=== PATIENT | male | born 1935 | race Caucasian/White ===

== ENCOUNTER 2018-06-07 17:54 | Observation (INO) ==
[2018-06-07] MEDS ORDERED: Dextrose Gel 15 GM/37.5 ML TUBE PO PRN ×2 (21:04)
[2018-06-07 21:41] LABS: Basophils % 0.5 %; Eosinophils # 0.2 K/mcL (0.0-0.6); Eosinophils % 3.9 %; Immature Granulocytes % 0.5 % (0-4); Lymphocytes # 0.6 K/mcL (0.6-4.6); Lymphocytes % 9.2 %; Mean Corpuscular HGB Conc 30.8 g/dL (31.6-35.5); Mean Corpuscular Hemoglobin 23.7 pg (28.0-33.3); Mean Corpuscular Volume 77.2 fL (83.0-100.0); Mean Platelet Volume 9.4 fL (9.4-12.4); Monocytes # 0.7 K/mcL (0.0-1.3); Monocytes % 11.3 %; Neutrophils # 4.6 K/mcL (1.6-8.9); Platelet Count 201 K/mcL (140-400); Red Blood Count 3.37 M/mcL (4.19-5.50); Red Cell Distribution Width 16.8 % (11.5-14.5); Segmented Neutrophils % 74.6 %
[2018-06-07 21:48] LABS: INR 1.2
[2018-06-07 21:51] LABS: Activated Partial Thrombo Time 31.7 Seconds (26.0-36.0)
[2018-06-07 21:58] LABS: Albumin 2.9 g/dL (3.5-5.7); Bilirubin,Direct 0.1 mg/dL (0.0-0.2); Bilirubin,Indirect 0.3 mg/dL (0.0-1.2); Bilirubin,Total 0.4 mg/dL (0.3-1.0); Calcium 8.3 mg/dL (8.6-10.3); Globulin 2.9 g/dL (2.4-3.5); Potassium 5.5 mEq/L (3.5-5.1); Total Protein 5.8 g/dL (6.4-8.9)
[2018-06-07] MEDS: Insulin LISPRO 300 UNITS/3 ML VIAL SQ SCH (23:40)
[2018-06-07] MEDS: Melatonin 3 MG TABLET PO SCH (23:43)
--- NOTE | 2018-06-08 03:29 | Internal Med History&Physical ---
Date of Encounter: 06/07/18 Time of Encounter: 20:00 Internal Medicine - H&P: HPI Chief complaint: swelling Admitted From: Home Plans for Post Hospital Care: Home History of present illness: Raheem Palomares is an 83 year old man with chronic kidney disease, coronary artery disease, anemia, GI bleed and liver cirrhosis with ascites who was discharged from here about 3 weeks ago where he required paracentesis but also suffered MATT from diuretics. He was meant to follow with nephrology and GI as OP. He presents again on transfer from a hospital in [place] where he went to complaining of increased swelling in his legs and abdomen since discontinuation of the diuretics. There he had a paracentesis performed but was also noted to have worsening kidney disease. On arrival here he has no complaints and feels better. Vitals: Reviewed General: Well-developed man lying in bed in NAD Skin: Warm and supple. HEENT: Moist mucous membranes. (+) conjunctivae pallor. . Neck: No lymphadenopathy. No JVD. No carotid bruits. No palpable thyroid. Chest: Reduced thoracic expansion. Diminished breath sounds. Clear to auscultation. Heart: Normal S1 & S2; rhythmic. No rubs or murmurs. Abdomen: distended, soft and non-tender to palpation. No peritoneal reaction. Extremities: 3+ pitting edema of both legs. Neurological: Awake, alert and oriented to person, place and time. No focal deficits. Psych: Affect appropriate. Past Med Surg Social Fam HX - Past Medical History Medical history: CHF, diabetes, hypertension, renal disease Additional medical history: Skin cancer Psychiatric history: depression - Past Surgical History Surgical History: coronary bypass (CABG) Additional surgical history: Skin cancer removal - Social History Smoking Status: Former smoker Smokeless Tobacco Status: No Alcohol use: none Drug use: none - Family History Mother Living Status: Hx Family Cancer: Yes (Uterine) Father Hx Family Cancer: Yes (Retinal) Hx Family Endocrine Disorder: Yes (DM) Brother Hx Family Cardiac Disorders: Yes (DVT) Internal Medicine - H&P: Meds Aspirin [Ecotrin] 325 mg PO DAILY 05/09/18 [History] Atorvastatin [Lipitor] 10 mg PO HS 05/09/18 [History] Calcium Carbonate [Calcium] 600 mg PO DAILY 05/09/18 [History] Famotidine [Acid Controller] 20 mg PO BID 05/09/18 [History] Insulin NPH Hum/Reg Insulin Hm [Novolin 70-30 100 Unit/ml Vial] 60 unit SQ BID 05/09/18 [History] Melatonin [Melatin] 3 mg PO HS 05/09/18 [History] Metoprolol [Lopressor] 12.5 mg PO BID 05/09/18 [History] Sertraline [Zoloft] 50 mg PO HS 05/09/18 [History] Tamsulosin HCl [Flomax] 0.4 mg PO HS 05/09/18 [History] hydrALAZINE [HydrALAZINE] 25 mg PO DAILY 05/09/18 [History] Cyanocobalamin (Vitamin B-12) [Vitamin B-12] 1,000 mcg PO DAILY 05/10/18 [History] Dorzolamide [Trusopt] 1 drop BOTH EYES BID 05/10/18 [History] Ferrous Gluconate [Iron] 240 mg PO DAILY 05/10/18 [History] Insulin ASPART [NovoLOG] 0 unit SQ ACHS 05/10/18 [History] Omeprazole [PriLOSEC] 40 mg PO BIDAC 30 Days #60 capsule. 05/17/18 [Rx] Lisinopril 30 mg PO BID 06/07/18 [History] Allergy/AdvReac Type Severity Reaction Status Date / Time Penicillins Allergy Swelling Verified 08/26/17 12:58 of Lip/Tongue/Throat All Systems PM: A 10-system review of systems was performed and is negative for pertinent findings except as documented above in the HPI. - Constitutional Vitals: Temp Pulse Resp BP Pulse Ox 97.9 F 79 17 153/65 98 06/07/18 20:39 06/07/18 20:39 06/07/18 20:39 06/07/18 20:39 06/07/18 20:39 Exam: . Internal Med - H&P Results - Labs CBC & Chem 7: 06/07/18 21:19 06/07/18 21:19 Labs: Short CBC 06/07/18 Range/Units 21:19 WBC 6.2 (4.3-11.1) K/mcL Hgb 8.0 L (12.9-16.9) g/dL Hct 26.0 L (37.5-50.1) % Plt Count 201 (140-400) K/mcL Neutrophils # 4.6 (1.6-8.9) K/mcL BMP 06/07/18 21:19 Sodium 132 L Potassium 5.5 H Chloride 107 Carbon Dioxide 15 L BUN 88 H Creatinine 4.53 H Glucose 169 H Calcium 8.3 L Liver Function 06/07/18 Range/Units 21:19 Total Bilirubin 0.4 (0.3-1.0) mg/dL Direct Bilirubin 0.1 (0.0-0.2) mg/dL AST 6 L (13-39) Units/L ALT 10 (7-52) Units/L Alkaline Phosphatase 98 (34-104) Units/L Albumin 2.9 L (3.5-5.7) g/dL - Assessment and Plan (1) Acute kidney injury superimposed on CKD Current Visit: Yes Status: Acute Assessment and plan: Concern that it may be secondary to intra-vascular depletion. Will consult nephrology for assessment as I plan to not give fluids for now given his third spacing. (2) Ascites Current Visit: No Status: Acute Assessment and plan: Unclear etiology of his liver disease. He denies alcohol use to me. Hepatitis serologies negative. He received a paracentesis prior to transfer here. Diuretics on hold given his kidney injury. Qualifiers: Ascites type: other type Qualified Code(s): R18.8 - Other ascites (3) Anemia Current Visit: No Status: Chronic Assessment and plan: In the setting of chronic blood loss from hepatic disease. FeSO4 supplementation in place. Qualifiers: Anemia type: iron deficiency Iron deficiency anemia type: chronic blood loss Qualified Code(s): D50.0 - Iron deficiency anemia secondary to blood loss (chronic) (4) Cirrhosis Current Visit: Yes Status: Chronic Assessment and plan: Will place on standing lactulose. Will need EGD to evaluation for varices. G/I f/u needed. Qualifiers: Hepatic cirrhosis type: unspecified hepatic cirrhosis Ascites presence: with ascites Qualified Code(s): K74.60 - Unspecified cirrhosis of liver; R18.8 - Other ascites (5) CAD (coronary artery disease) Current Visit: Yes Status: Chronic Assessment and plan: On statin therapy. Aspirin on hold due to bruising and bleeding. Qualifiers: Coronary Disease-Associated Artery/Lesion type: [place] artery [place] vs. transplanted heart: [place] heart Associated angina: without angina Qualified Code(s): I25.10 - Atherosclerotic heart disease of [place] coronary artery without angina pectoris (6) Diabetes Current Visit: Yes Status: Chronic Assessment and plan: Will place on insulin sliding scale in the interim. Qualifiers: Diabetes mellitus type: type 2 Diabetes mellitus longterm insulin use: with termite control servicer use Diabetes mellitus complication status: with unspecified complications Qualified Code(s): E11.8 - Type 2 diabetes mellitus with unspecified complications; Z79.4 - assisted (current) use of insulin (7) Hyperkalemia Current Visit: Yes Status: Resolved Assessment and plan: Has a tendency to hyperkalemia and this will require frequent monitoring. (8) DVT prophylaxis Current Visit: Yes Status: Acute Assessment and plan: IPC ordered. - Time Spent With Patient Total time spent is greater than 50% in coordination of care (as documented) at patient's floor/unit and/or counseling patient: Greater than 35 minutes
[2018-06-08] MEDS ORDERED: D5% in Water 1,000 ML IVC PRN (07:12)
[2018-06-08] MEDS ORDERED: *HR* Dextrose 50 % in Water (Syg) 50 ML SYRINGE IVP PRN (07:12)
[2018-06-08] MEDS: Insulin LISPRO 300 UNITS/3 ML VIAL SQ SCH ×4 (07:16→21:26)
[2018-06-08] MEDS: Cyanocobalamin (B-12) 1,000 MCG TABLET PO SCH (07:27)
[2018-06-08] MEDS: Lactulose Oral Soln 20 GM/30 ML UDC PO SCH ×2 (07:28→21:35)
[2018-06-08] MEDS ORDERED: Famotidine 20 MG TABLET PO SCH (09:00)
[2018-06-08] MEDS ORDERED: Ferrous Sulfate Oral Soln 300 MG/5 ML UDC PO SCH (09:00)
[2018-06-08] MEDS ORDERED: hydrALAZINE 25 MG TABLET PO SCH (09:00)
[2018-06-08 09:35] LABS: Hematocrit 25.3 % (37.5-50.1); Hemoglobin 7.5 g/dL (12.9-16.9); Mean Corpuscular HGB Conc 29.6 g/dL (31.6-35.5); Mean Corpuscular Hemoglobin 22.9 pg (28.0-33.3); Mean Corpuscular Volume 77.4 fL (83.0-100.0); Mean Platelet Volume 8.7 fL (9.4-12.4); Platelet Count 183 K/mcL (140-400); Red Blood Count 3.27 M/mcL (4.19-5.50); Red Cell Distribution Width 16.6 % (11.5-14.5)
[2018-06-08 09:55] LABS: Calcium 8.2 mg/dL (8.6-10.3); Potassium 5.4 mEq/L (3.5-5.1)
[2018-06-08] MEDS: Dorzolamide OPTH 10 ML BOTTLE BOTH EYES SCH ×2 (10:15→22:23)
[2018-06-08 10:26] LABS: Hepatitis B Surface Antibody 3.37 mIU/mL
[2018-06-08 10:36] LABS: Hepatitis B Surface Antigen Nonreactive (Nonreactive)
[2018-06-08] MEDS: Ferrous Sulfate Oral Soln 300 MG/5 ML UDC PO SCH (11:16)
--- NOTE | 2018-06-08 12:12 | Nephrology Consult Note ---
Date of Encounter: 06/08/18 Time of Encounter: 10:00 Assessment and Plan (1) Acute kidney injury superimposed on CKD Status: Acute MATT on CKD and he was transferred from a [place] to [place]. Agree with stopping the usual dose of lisinopril 30mg po bid, which likely has contributed to his hyperkalemia and worsened renal function. he affirmed having diarrhea recently and was also taking OTC Aleve of about "1-2" per day. Rec avoiding nephrotoxins as able. Rec renal diet that is very low his K+ and Phos. Recommend trial of gentle IVF and if he does not improve, then he should start HD. Noted to have peripheral edema and ascites on exam, which confirms added complexity in decision making for this pt. He is not likely to tolerate very much IVF Thank you for consulting the [facility] group on this complex, high risk pt who required a very high degree of MDM and E/M. My colleague Dr. Biswas will be on-call/on-service starting tomorrow. Thank you. (2) Peripheral edema Status: Acute See above (3) NSAID long-term use Status: Acute See above (4) Hypertension Status: Chronic He likely should not be resumed on the very usual dosing of lisinopril 30mg po bid after this admission but certainly to hold for now. Qualifiers: Hypertension type: unspecified Qualified Code(s): I10 - Essential (primary) hypertension (5) Cirrhosis Status: Chronic As per primary. HRS is always a diagnosis of exclusion and not at the top of the current differential diagnoses. Qualifiers: Hepatic cirrhosis type: unspecified hepatic cirrhosis Ascites presence: with ascites Qualified Code(s): K74.60 - Unspecified cirrhosis of liver; R18.8 - Other ascites (6) Hyperkalemia Status: Resolved See above, re: holding the VICENTE and NSAIDs. (7) Ascites Status: Acute See above. Qualifiers: Ascites type: other type Qualified Code(s): R18.8 - Other ascites History of Present Illness - Reason for Consult Consult date: 06/08/18 Acute Kidney Injury, Chronic Kidney Disease, hyperkalemia Requesting physician: Elieser Rivera - Chief Complaint MATT on CKD with findings of hyperkalemia - History of Present Illness The patient is a very pleasant 83-year-old male with a past medical history of progressive long-standing chronic kidney disease, as well as a history of cirrhosis with recurrent ascites, hypertension, and et al who transferred from an outside hospital from [facility]. He said that years ago he was seen by a now retired rayon tester, which is when he thinks he was first placed on Lisinopril 30mg twice per day, but the patient recently established with my colleague Dr. Preet Brown. The patient affirmed he has been taking frequent NSAIDs, and reported having a paracentesis recently performed. He was noted to have worsening labs and so the outside hospital recommended the patient be seen at [place]. The patient affirmed feeling relatively poor, with diminished appetite occasional nausea, occasional loose stools. He denied having recent IV contrast exposures from CT scans or a heart catheter. He did not affirm active chest pain, or worsening shortness of breath, or headaches, or visual changes, but did affirm chronic lower extremity swelling, history of cirrhosis with abdominal distention/ascites. Past Med Surg Social Fam HX - Past Medical History Medical history: CHF, diabetes, hypertension, renal disease Additional medical history: Skin cancer Psychiatric history: depression - Past Surgical History Surgical History: coronary bypass (CABG) Additional surgical history: Skin cancer removal - Social History Smoking Status: Former smoker Smokeless Tobacco Status: No Alcohol use: none Drug use: none - Family History Mother Living Status: Hx Family Cancer: Yes (Uterine) Father Hx Family Cancer: Yes (Retinal) Hx Family Endocrine Disorder: Yes (DM) Brother Hx Family Cardiac Disorders: Yes (DVT) Medications and Allergies Aspirin [Ecotrin] 325 mg PO DAILY 05/09/18 [History] Atorvastatin [Lipitor] 10 mg PO HS 05/09/18 [History] Calcium Carbonate [Calcium] 600 mg PO DAILY 05/09/18 [History] Famotidine [Acid Controller] 20 mg PO BID 05/09/18 [History] Melatonin [Melatin] 3 mg PO HS 05/09/18 [History] Metoprolol [Lopressor] 12.5 mg PO BID 05/09/18 [History] Sertraline [Zoloft] 50 mg PO HS 05/09/18 [History] Tamsulosin HCl [Flomax] 0.4 mg PO HS 05/09/18 [History] Dorzolamide [Trusopt] 1 drop BOTH EYES BID 05/10/18 [History] Ferrous Gluconate [Iron] 240 mg PO DAILY 05/10/18 [History] Insulin ASPART [NovoLOG] 0 unit SQ ACHS MDD PER SLIDING SCALE 05/10/18 [History] Cyanocobalamin (Vitamin B-12) [B-12] 1,000 mcg PO DAILY 06/08/18 [History] Diphenoxylate/Atropine [Lomotil 2.5 mg/0.025 mg] 1 tab PO Q6H PRN 06/08/18 [History] Dorzolamide HCl/Pf [Dorzolamide 2% Eye Drop] 1 drop BOTH EYES BID 06/08/18 [History] Insulin Aspart Prot/Insuln Asp [Novolog Mix 70-30 Vial] 40 unit SQ BID #0 06/10/18 [Rx] Lactulose 10 gm PO BID #60 udc 06/10/18 [Rx] Allergy/AdvReac Type Severity Reaction Status Date / Time Penicillins Allergy Swelling Verified 06/08/18 14:10 of Lip/Tongue/Throat Review of Systems All Systems: reviewed and no additional remarkable complaints except as stated Exam - Vital Signs Vital signs: Initial Vital Signs Temp Pulse Resp BP Pulse Ox 97.9 F 79 17 153/65 98 06/07/18 20:39 06/07/18 20:39 06/07/18 20:39 06/07/18 20:39 06/07/18 20:39 Vital Signs - Last 8 Hours Temp Pulse Resp BP Pulse Ox 06/08/18 11:03 97.6 F 55 18 101/49 97 06/08/18 07:08 98.3 F 60 16 116/57 98 Intake and Output 06/07/18 06/08/18 06/08/18 23:59 07:59 15:59 Intake Total 480 / 480 Balance 480 / 480 Intake: Oral 480 / 480 Other: Meal Breakfast Percent of Meal Consumed 100% Weight 117.9 kg Blood Glucose* 166 134 203 - General Appearance General appearance: well-developed, well-nourished, appears started age, fatigue, frail EENT: ATNC, PERRL, mucous membranes moist Neck: supple Respiratory: clear Cardiology: edema (2-3+ pitting edema b/l (the pt described this as chronic)), regular rate, regular rhythm, normal S1, normal S2 Gastrointestinal: normoactive bowel sounds, no tenderness, no guarding Integumentary: warm and dry Neurologic: no focal deficit, no asterixis, alert and oriented x3 Musculoskeletal: no deformities, no erythema, no cyanosis Psychiatric: mood/affect appropriate, cooperative Results - Lab Results 06/10/18 02:05 06/10/18 02:05 Most recent lab results Calcium 8.2 mg/dL (8.6-10.3) L 06/08/18 09:22 I reviewed the labs, vitals, med list and prior progress notes and imaging. Consult Discharge Plan - Plan Additional Instructions: Dr. Biswas's Office to call the patient on Tuesday or Tuesday - appts needed for f-up visit and hemodialysis session... You must have your labs drawn on Tuesday and sent to Dr Biswas's office Referrals: Prema Ledesma, JUDD [Advanced Practice Nurse] - (Call office Tuesday to schedule follow up for next week) Vivi Duque MD [Partnered Physician] - (Please ensure you follow up with Dr. Biswas's office next week. If for some reason you do not hear from them by Tuesday evening please call first thing on Tuesday Morning and tell them you need a hospital follow up this week per Dr. Kelly orders. And if they have any questions they can reach out to Dr. Biswas or to the nurses station. Thank you!) Prescriptions: Lactulose 10 gm PO BID #60 [facility] [place]
[2018-06-08] MEDS ORDERED: 0.9 % Sodium Chloride 1,000 ML IVC SCH (12:30)
[2018-06-08 14:14] LABS: Uric Acid 9.9 mg/dL (2.3-7.6)
[2018-06-08] MEDS: Famotidine 20 MG TABLET PO SCH (21:34)
[2018-06-08] MEDS: Melatonin 3 MG TABLET PO SCH (21:35)
--- NOTE | 2018-06-08 22:42 | Internal Med Progress Note ---
Hospitalist Progress Note - Encounter Date of Encounter: 06/08/18 Time of Encounter: 19:00 - Subjective Interval History: SUBJECTIVE: The patient feels somewhat bettergot paracentesis yesterday. He started getting paracentesis about 2 weeks ago; got couple of those. He is on room air oxygen. Denies difficulty breathing, coughing and wheezing. Denies chest pain. Denies abdominal pain, nausea and vomiting. His abdominal pain has significantly increased girth. He has mild/moderate swelling of feet/lower legs. OBJECTIVE: Skin: Free of rash and discoloration. ENMT: Oral/pharyngeal mucosa is normal in appearance. Eyes: Sclera is white. There is no discharge from eyes. Respiratory: Normal breath sounds; no crackles or wheezes. CV: Heart is regular; no gallop or murmur. There is mild/moderate swelling of feet/lower legs. GI: His abdomen is showing increased girth. It is not tender to palpation. I cannot feel any abnormal mass or visceromegaly. Neuro: There is no focal deficits. ADDITIONAL DATA: Hemoglobin is 8.0 (chronic) with a normal WBC/platelet count. Sodium is 132 with potassium of 5.5. Her bicarb is 15. Creatinine is 4.53; was three-point at 2 6 on 05/16/18. He has underlying CKD stage IV. Fasting glucose is 169. Hepatic panel is normal. Pro time INR is 1.2. ASSESSMENT AND PLAN: Acute on chronic renal failure. CKD stage IV. Type 2 diabetes mellitus and hypertension. He gets when necessary Humalog. I will substitute his Lopressor with her low dose of propranolol. His lisinopril has been stopped. He is receiving normal saline at 75 cc/h. He will have BMP daily. Liver cirrhosis with edema of her feet/lower legs. With ascites. He had paracentesis yesterday. The patient is on lactulose. He is on Prilosec and Pepcid. He had upper endoscopy on 05/17/18. It showed normal esophagus/stomach/examined portion of duodenum. Anemia. Likely multifactorial. To observe. The patient has underlying very mild systolic heart failure with possible diastolic heart failure. They are chronic. See echocardiogram. - Exam Vitals: Temp Pulse Resp BP Pulse Ox 97.3 F L 82 17 163/79 99 06/08/18 20:37 06/08/18 20:37 06/08/18 20:37 06/08/18 20:37 06/08/18 20:37 Exam: xx - Assessment and Plan (1) Acute kidney injury superimposed on CKD Current Visit: Yes Status: Acute (2) Cirrhosis Current Visit: Yes Status: Chronic (3) Ascites Current Visit: No Status: Acute (4) Anemia Current Visit: No Status: Chronic (5) Diabetes Current Visit: Yes Status: Chronic (6) Hypertensive renal disease with renal failure Current Visit: Yes Status: Chronic - Time Spent with Patient Total time spent is greater than 50% in coordination of care (as documented) at patient's floor/unit and/or counseling patient: 25 - 35 minutes Plan of Care Discussed with: patient Internal Medicine: Result - Labs CBC & Chem 7: 06/08/18 09:22 06/08/18 09:22 Labs: Short CBC 06/08/18 Range/Units 09:22 WBC 6.7 (4.3-11.1) K/mcL Hgb 7.5 L (12.9-16.9) g/dL Hct 25.3 L (37.5-50.1) % Plt Count 183 (140-400) K/mcL BMP 06/08/18 09:22 Sodium 133 L Potassium 5.4 H Chloride 109 H Carbon Dioxide 16 L BUN 88 H Creatinine 4.60 H Glucose 178 H Calcium 8.2 L - ABG Interpretation ABG results: PT/INR, D-dimer PT 14.0 Seconds (9.4-12.1) H 06/07/18 21:19 - Impressions Impressions Retroperitoneum Ultrasound 06/08/18 18:00 IMPRESSION: Unremarkable ultrasound of the kidneys and urinary bladder. Extensive ascites. D/ / Buddy Pascal MD / Buddy Pascal MD Interpreting Provider: Buddy Pascal MD Consult Discharge Plan - Plan Referrals: NONE,PCP [Primary Care Provider] - (2) Cirrhosis Qualifiers: Hepatic cirrhosis type: unspecified hepatic cirrhosis Ascites presence: with ascites Qualified Code(s): K74.60 - Unspecified cirrhosis of liver; R18.8 - Other ascites (3) Ascites Qualifiers: Ascites type: other type Qualified Code(s): R18.8 - Other ascites (4) Anemia Qualifiers: Anemia type: iron deficiency Iron deficiency anemia type: chronic blood loss Qualified Code(s): D50.0 - Iron deficiency anemia secondary to blood loss (chronic) (5) Diabetes Qualifiers: Diabetes mellitus type: type 2 Diabetes mellitus jail insulin use: with jail use Diabetes mellitus complication status: with kidney complications Diabetes mellitus complication detail: with chronic kidney disease Chronic kidney disease stage: stage 4 (severe) Qualified Code(s): E11.22 - Type 2 diabetes mellitus with diabetic chronic kidney disease; N18.4 - Chronic kidney disease, stage 4 (severe); Z79.4 - terminal worker (current) use of insulin
[2018-06-09 02:52] LABS: Hematocrit 24.7 % (37.5-50.1); Hemoglobin 7.6 g/dL (12.9-16.9); Mean Corpuscular HGB Conc 30.8 g/dL (31.6-35.5); Mean Corpuscular Hemoglobin 23.8 pg (28.0-33.3); Mean Corpuscular Volume 77.2 fL (83.0-100.0); Mean Platelet Volume 9.6 fL (9.4-12.4); Platelet Count 189 K/mcL (140-400); Red Cell Distribution Width 16.5 % (11.5-14.5)
[2018-06-09 03:13] LABS: Albumin 2.7 g/dL (3.5-5.7); Magnesium 1.6 mg/dL (1.6-2.6); Phosphorous 5.1 mg/dL (2.7-4.5)
[2018-06-09 03:14] LABS: Calcium 7.9 mg/dL (8.6-10.3); Potassium 5.3 mEq/L (3.5-5.1)
[2018-06-09] MEDS ORDERED: 0.9 % Sodium Chloride 250 ML IVC PRN (05:50)
[2018-06-09] MEDS ORDERED: 0.9 % Sodium Chloride 1,000 ML PRIME SCH (06:00)
[2018-06-09] MEDS: Insulin LISPRO 300 UNITS/3 ML VIAL SQ SCH ×4 (08:33→20:54)
[2018-06-09] MEDS: Lactulose Oral Soln 20 GM/30 ML UDC PO SCH ×2 (08:40→20:47)
[2018-06-09] MEDS: Cyanocobalamin (B-12) 1,000 MCG TABLET PO SCH (08:40)
[2018-06-09] MEDS: Dorzolamide OPTH 10 ML BOTTLE BOTH EYES SCH ×2 (08:42→20:50)
[2018-06-09] MEDS ORDERED: *HR* Heparin 5,000 UNIT/ML VIAL ONE (10:25)
[2018-06-09] MEDS: Ferrous Sulfate Oral Soln 300 MG/5 ML UDC PO SCH (11:47)
[2018-06-09] MEDS ORDERED: Methyl Salicylate/Menthol 28 GM TUBE TP PRN (17:26)
[2018-06-09] MEDS: Melatonin 3 MG TABLET PO SCH (20:48)
[2018-06-09] MEDS: Famotidine 20 MG TABLET PO SCH (20:48)
--- NOTE | 2018-06-09 22:04 | Internal Med Progress Note ---
Hospitalist Progress Note - Encounter Date of Encounter: 06/09/18 Time of Encounter: 19:00 - Subjective Interval History: SUBJECTIVE: The patient got non-tunneled catheter inserted todayfollowed by hemodialysis. He feels weak. Otherwise, he is not voicing any other problems. Denies chest pain and difficulty breathing. He is on room her oxygen. Denies abdominal pain, nausea and vomiting. She does not make any significant amounts of urine. OBJECTIVE: Skin: Free of rash and discoloration. ENMT: Oral/pharyngeal mucosa is normal in appearance. Eyes: Sclera is white. There is no discharge from eyes. Respiratory: Normal breath sounds; no crackles or wheezes. CV: Heart is regular; no gallop or murmur. There is mild/moderate swelling of feet/lower legs. GI: His abdomen is showing increased girth. It is not tender to palpation. I cannot feel any abnormal mass or visceromegaly. Neuro: There is no focal deficits. ADDITIONAL DATA: Hemoglobin 7.6 with normal WBC/platelet count. Sodium is 135 with potassium of 5.3 and bicarb of 14. Creatinine is 4.79 with a GFR of 14. Fingerstick for glucose from today is 134, 174 and 122. ASSESSMENT AND PLAN: Acute on chronic renal failure. CKD stage IV. Type 2 diabetes mellitus and hypertension. He gets when necessary Humalog. He is on low-dose propranolol. Hemodialysis has been started by renal service. Liver cirrhosis with edema of feet/lower legs. With ascites. He had paracentesis 2 days ago. The patient is on lactulose. He is on Prilosec and Pepcid. He had upper endoscopy on 05/17/18. It showed normal esophagus/stomach/examined portion of duodenum. Anemia. Likely multifactorial. To observe. The patient has underlying very mild systolic heart failure with possible diastolic heart failure. They are chronic. See echocardiogram. - Exam Vitals: Temp Pulse Resp BP Pulse Ox 97.8 F 88 17 158/64 100 06/09/18 20:00 06/09/18 20:00 06/09/18 20:00 06/09/18 20:00 06/09/18 20:00 Exam: xx - Assessment and Plan (1) Acute kidney injury superimposed on CKD Current Visit: Yes Status: Acute (2) Cirrhosis Current Visit: Yes Status: Chronic (3) Ascites Current Visit: No Status: Acute (4) Anemia Current Visit: No Status: Chronic (5) Diabetes Current Visit: Yes Status: Chronic (6) Hypertensive renal disease with renal failure Current Visit: Yes Status: Chronic - Time Spent with Patient Total time spent is greater than 50% in coordination of care (as documented) at patient's floor/unit and/or counseling patient: 25 - 35 minutes Plan of Care Discussed with: patient Internal Medicine: Result - Labs CBC & Chem 7: 06/09/18 01:46 06/09/18 01:46 Labs: Short CBC 06/09/18 Range/Units 01:46 WBC 7.2 (4.3-11.1) K/mcL Hgb 7.6 L (12.9-16.9) g/dL Hct 24.7 L (37.5-50.1) % Plt Count 189 (140-400) K/mcL BMP 06/09/18 01:46 Sodium 135 L Potassium 5.3 H Chloride 110 H Carbon Dioxide 14 L BUN 88 H Creatinine 4.79 H Glucose 143 H Calcium 7.9 L Liver Function 06/09/18 Range/Units 01:46 Albumin 2.7 L (3.5-5.7) g/dL - ABG Interpretation ABG results: PT/INR, D-dimer PT 14.0 Seconds (9.4-12.1) H 06/07/18 21:19 - Impressions Impressions Retroperitoneum Ultrasound 06/08/18 18:00 IMPRESSION: Unremarkable ultrasound of the kidneys and urinary bladder. Extensive ascites. D/ / Buddy Pascal MD / Buddy Pascal MD Interpreting Provider: Buddy Pascal MD Guidance Ultrasound 06/09/18 00:00 IMPRESSION: Ultrasound guided non-tunneled dialysis catheter placement performed. D/ / Raheem Kumar MD / Raheem Kumar MD Interpreting Provider: Raheem Kumar MD Insertion Non-Tunneled Catheter 06/09/18 00:00 IMPRESSION: Ultrasound guided non-tunneled dialysis catheter placement performed. D/ / Raheem Kumar MD / Raheem Kumar MD Interpreting Provider: Raheem Kumar MD Chest X-Ray 06/09/18 10:27 IMPRESSION: Dialysis catheter tip overlies the atrial caval junction. No pneumothorax. RECOMMENDATION: Dialysis catheter is okay to use. D/ / Raheem Kumar MD / Raheem Kumar MD Interpreting Provider: Raheem Kumar MD Consult Discharge Plan - Plan Referrals: NONE,PCP [Primary Care Provider] - (2) Cirrhosis Qualifiers: Hepatic cirrhosis type: unspecified hepatic cirrhosis Ascites presence: with ascites Qualified Code(s): K74.60 - Unspecified cirrhosis of liver; R18.8 - Other ascites (3) Ascites Qualifiers: Ascites type: other type Qualified Code(s): R18.8 - Other ascites (4) Anemia Qualifiers: Anemia type: iron deficiency Iron deficiency anemia type: chronic blood loss Qualified Code(s): D50.0 - Iron deficiency anemia secondary to blood loss (chronic) (5) Diabetes Qualifiers: Diabetes mellitus type: type 2 Diabetes mellitus interactive media marketing strategist insulin use: with interactive media marketing strategist use Diabetes mellitus complication status: with kidney complications Diabetes mellitus complication detail: with chronic kidney disease Chronic kidney disease stage: stage 4 (severe) Qualified Code(s): E11.22 - Type 2 diabetes mellitus with diabetic chronic kidney disease; N18.4 - Chronic kidney disease, stage 4 (severe); Z79.4 - FDC (current) use of insulin
--- NOTE | 2018-06-09 22:37 | Nephrology Progress Note ---
Date of Encounter: 06/09/18 Time of Encounter: 12:00 - Assessment and Plan (1) Hyperkalemia Current Visit: Yes Status: Resolved Potassium noted at 5.3, should improve with HD today Renal diet advised (2) Acute kidney injury superimposed on CKD Current Visit: Yes Status: Acute SCr noted worsening at 4.76, GFR 12, will start HD first session today with UF planned. Will assess for secomd HD session tomorrow UOP noted at 650cc in the past 24hrs Continue to avoid nephrotoxins if possible (3) Ascites Current Visit: No Status: Acute Qualifiers: Ascites type: other type Qualified Code(s): R18.8 - Other ascites (4) Cirrhosis Current Visit: Yes Status: Chronic Qualifiers: Hepatic cirrhosis type: unspecified hepatic cirrhosis Ascites presence: with ascites Qualified Code(s): K74.60 - Unspecified cirrhosis of liver; R18.8 - Other ascites (5) Peripheral edema Current Visit: Yes Status: Acute (6) NSAID long-term use Current Visit: Yes Status: Acute (7) Hypertension Current Visit: Yes Status: Acute Subjective Interval history: Pt seen and examined on HD after temp HD line placed by IR, no new complaints. Objective - Vital Signs Vital signs: Vital Signs Temp Pulse Resp BP Pulse Ox 06/09/18 20:00 97.8 F 88 17 158/64 100 06/09/18 15:55 97.8 F 86 18 165/64 100 06/09/18 14:46 97.8 F 18 144/64 06/09/18 14:30 125/55 06/09/18 14:15 128/63 06/09/18 14:00 129/61 06/09/18 13:45 126/56 06/09/18 13:30 95/38 06/09/18 13:15 97/54 06/09/18 13:00 114/54 06/09/18 12:45 110/42 06/09/18 12:30 98 F 18 110/44 06/09/18 11:40 97.3 F L 55 18 113/47 99 06/09/18 09:01 98 06/09/18 08:27 97.6 F 56 16 109/54 98 06/09/18 04:00 97.7 F 59 17 129/61 99 06/08/18 23:50 97.5 F L 83 17 155/71 99 Intake and Output 06/09/18 06/09/18 06/09/18 07:59 15:59 23:59 Intake Total 720 / 720 Output Total 500 / 500 1600 / 1600 Balance -500 / -500 -880 / -880 Intake: Oral 120 / 120 Intake, Rinseback and Flushes 600 / 600 Output: Total Dialysis (HD) Output 1600 / 1600 Catheter 500 / 500 Other: Stool Size Moderate Moderate Stool Consistency liquid soft Stool Color Brown Anmol Colored # Bowel Movements 1 # Bowel Movement Diapers 1 Blood Glucose* 174 214 Hemodialysis Net Fluid Removed 1000 (mL) - Lab 06/09/18 01:46 06/09/18 01:46 Most recent lab results Calcium 7.9 mg/dL (8.6-10.3) L 06/09/18 01:46 Phosphorus 5.1 mg/dL (2.7-4.5) H 06/09/18 01:46 Magnesium 1.6 mg/dL (1.6-2.6) 06/09/18 01:46 Consult Discharge Plan - Plan Referrals: NONE,PCP [Primary Care Provider] -
[2018-06-10 02:48] LABS: Hematocrit 24.1 % (37.5-50.1); Hemoglobin 7.3 g/dL (12.9-16.9); Mean Corpuscular HGB Conc 30.3 g/dL (31.6-35.5); Mean Corpuscular Hemoglobin 23.8 pg (28.0-33.3); Mean Corpuscular Volume 78.5 fL (83.0-100.0); Mean Platelet Volume 9.9 fL (9.4-12.4); Platelet Count 127 K/mcL (140-400); Red Blood Count 3.07 M/mcL (4.19-5.50); Red Cell Distribution Width 16.8 % (11.5-14.5)
[2018-06-10 03:06] LABS: Calcium 7.7 mg/dL (8.6-10.3); Potassium 4.7 mEq/L (3.5-5.1)
[2018-06-10] MEDS ORDERED: *HR* Heparin 10,000 UNIT/10 ML VIAL IV PRN (07:24)
[2018-06-10] MEDS ORDERED: 0.9 % Sodium Chloride 250 ML IVC PRN (07:24)
[2018-06-10] MEDS ORDERED: 0.9 % Sodium Chloride 1,000 ML PRIME SCH (07:30)
[2018-06-10] MEDS: Lactulose Oral Soln 20 GM/30 ML UDC PO SCH (08:11)
[2018-06-10] MEDS: Dorzolamide OPTH 10 ML BOTTLE BOTH EYES SCH (08:12)
[2018-06-10] MEDS: Cyanocobalamin (B-12) 1,000 MCG TABLET PO SCH (08:13)
[2018-06-10] MEDS: Insulin LISPRO 300 UNITS/3 ML VIAL SQ SCH ×3 (08:13→18:46)
--- NOTE | 2018-06-10 10:51 | Nephrology Progress Note ---
Date of Encounter: 06/10/18 Time of Encounter: 12:00 - Assessment and Plan (1) Hyperkalemia Current Visit: Yes Status: Resolved resolved Continue renal diet (2) Acute kidney injury superimposed on CKD Current Visit: Yes Status: Acute SCr slightly improved after HD yesterday, continue second HD session today with UF as tolreated Will likely hold HD tomorrow and resume on tuesday Continue to avoid nephrotoxins if possible Possible premacth next week if no signs of renal recovery and outpatient HD placemnet (3) Ascites Current Visit: No Status: Acute Per primary team Qualifiers: Ascites type: other type Qualified Code(s): R18.8 - Other ascites (4) Cirrhosis Current Visit: Yes Status: Chronic Per primary team Qualifiers: Hepatic cirrhosis type: unspecified hepatic cirrhosis Ascites presence: with ascites Qualified Code(s): K74.60 - Unspecified cirrhosis of liver; R18.8 - Other ascites (5) Peripheral edema Current Visit: Yes Status: Acute (6) Hypertension Current Visit: Yes Status: Acute (7) Anemia Current Visit: No Status: Chronic Hgb noted at 7.3, will transfuse 1 unit pRBCs at HD today Qualifiers: Anemia type: iron deficiency Iron deficiency anemia type: chronic blood loss Qualified Code(s): D50.0 - Iron deficiency anemia secondary to blood loss (chronic) Subjective Interval history: Pt seen and examined on HD, second session today. s/p first session with 2kg UF with no issues Objective - Vital Signs Vital signs: Vital Signs Temp Pulse Resp BP Pulse Ox 06/10/18 10:35 97.2 F L 74 16 104/50 06/10/18 10:20 97.1 F L 80 16 112/49 06/10/18 10:05 126/53 06/10/18 09:50 132/57 06/10/18 09:35 146/62 06/10/18 09:20 145/58 06/10/18 09:05 97.8 F 18 152/62 06/10/18 07:02 98.0 F 67 18 133/62 100 06/10/18 03:00 97.6 F 58 18 118/55 98 06/09/18 23:40 98 F 80 17 150/63 100 06/09/18 20:00 97.8 F 88 17 158/64 100 06/09/18 15:55 97.8 F 86 18 165/64 100 06/09/18 14:46 97.8 F 18 144/64 06/09/18 14:30 125/55 06/09/18 14:15 128/63 06/09/18 14:00 129/61 06/09/18 13:45 126/56 06/09/18 13:30 95/38 06/09/18 13:15 97/54 06/09/18 13:00 114/54 06/09/18 12:45 110/42 06/09/18 12:30 98 F 18 110/44 06/09/18 11:40 97.3 F L 55 18 113/47 99 Intake and Output 06/09/18 06/10/18 06/10/18 23:59 07:59 15:59 Intake Total 120 / 120 1070 / 1070 Output Total 600 / 600 Balance 120 / 120 -600 / -600 1070 / 1070 Intake: Oral 120 / 120 120 / 120 Blood Product 350 / 350 Rbcs Leuko Poor As-1 Unit 350 / 350 [id number] Intake, Rinseback and Flushes 600 / 600 Output: Catheter 600 / 600 Other: Meal Breakfast Percent of Meal Consumed 100% Weight 118 kg Blood Glucose* 214 143 Hemodialysis Net Fluid Removed 1981 (mL) - Lab 06/10/18 02:05 06/10/18 02:05 Most recent lab results Calcium 7.7 mg/dL (8.6-10.3) L 06/10/18 02:05 Phosphorus 5.1 mg/dL (2.7-4.5) H 06/09/18 01:46 Magnesium 1.6 mg/dL (1.6-2.6) 06/09/18 01:46 Consult Discharge Plan - Plan Referrals: NONE,PCP [Primary Care Provider] -
[2018-06-10] MEDS: Ferrous Sulfate Oral Soln 300 MG/5 ML UDC PO SCH (12:55)
[2018-06-10 15:41] VITALS: BP 135/56
--- NOTE | 2018-06-10 15:49 | Discharge Summary ---
Orders not resulted at time of discharge: Pending orders 06/11/18 04:00 Basic Metabolic Panel AM 0400 Complete Blood Count w/o Diff [HEME] AM 0400 06/12/18 04:00 Basic Metabolic Panel AM 0400 Complete Blood Count w/o Diff [HEME] AM 0400 Date of Encounter: 06/10/18 Time of Encounter: 15:30 - Discharge Diagnosis (1) Acute kidney injury superimposed on CKD Priority: Primary Status: Acute (2) Cirrhosis Priority: Primary Status: Chronic Qualifiers: Hepatic cirrhosis type: unspecified hepatic cirrhosis Ascites presence: with ascites Qualified Code(s): K74.60 - Unspecified cirrhosis of liver; R18.8 - Other ascites (3) Ascites Priority: Primary Status: Acute Qualifiers: Ascites type: other type Qualified Code(s): R18.8 - Other ascites (4) Anemia Priority: Secondary Status: Chronic Qualifiers: Anemia type: iron deficiency Iron deficiency anemia type: chronic blood loss Qualified Code(s): D50.0 - Iron deficiency anemia secondary to blood loss (chronic) (5) Diabetes Priority: Secondary Status: Chronic Qualifiers: Diabetes mellitus type: type 2 Diabetes mellitus intermediate project manager insulin use: with intermediate project manager use Diabetes mellitus complication status: with kidney complications Diabetes mellitus complication detail: with chronic kidney disease Chronic kidney disease stage: stage 4 (severe) Qualified Code(s): E11.22 - Type 2 diabetes mellitus with diabetic chronic kidney disease; N18.4 - Chronic kidney disease, stage 4 (severe); Z79.4 - ferry terminal supervisor (current) use of insulin (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 We admitted him with increased increased abdominal girth and swelling of lower legs/feet. It started, after he had stopped diuretics; they caused acute kidney injury. We offered him paracentesis. Nephrology was consulted. We started giving him hemodialysis. We discharge him early, as he experienced in his close family. CONDITION AT DISCHARGE: He is using room air oxygen. Denies chest pain and difficulty breathing. Denies abdominal pain, nausea and vomiting. Skin: Free of rash and discoloration. Respiratory: Normal breath sounds with no crackles and wheezes bilaterally. CV: Heart is regular with no gallop or murmur. There is mild swelling of lower legs/feet. GI: Abdomen is obese. It is soft and not tender. SEE DISCHARGE ORDERS/MEDICATIONS Dr. Kelly office will be calling the patient with arrangements for the next hemodialysis. I started him on scheduled lactulose. Discharge discussed with: patient, nurse - Time Spent with Patient Total time spent providing and/or coordinating discharge services: Time spent: Greater than 30 minutes (40 minutes...) - Discharge Medications Prescriptions: New Lactulose 10 gm PO BID #60 udc Continue Tamsulosin HCl [Flomax] 0.4 mg PO HS Atorvastatin [Lipitor] 10 mg PO HS Sertraline [Zoloft] 50 mg PO HS Melatonin [Melatin] 3 mg PO HS Calcium Carbonate [Calcium] 600 mg PO DAILY Aspirin [Ecotrin] 325 mg PO DAILY Famotidine [Acid Controller] 20 mg PO BID Metoprolol [Lopressor] 12.5 mg PO BID Dorzolamide [Trusopt] 1 drop BOTH EYES BID Ferrous Gluconate [Iron] 240 mg PO DAILY Insulin ASPART [NovoLOG] 0 unit SQ ACHS MDD PER SLIDING SCALE Cyanocobalamin (Vitamin B-12) [B-12] 1,000 mcg PO DAILY Diphenoxylate/Atropine [Lomotil 2.5 mg/0.025 mg] 1 tab PO Q6H PRN PRN Reason: Diarrhea Dorzolamide HCl/Pf [Dorzolamide 2% Eye Drop] 1 drop BOTH EYES BID Changed Insulin Aspart Prot/Insuln Asp [Novolog Mix 70-30 Vial] 40 unit SQ BID #0 Discontinued hydrALAZINE [HydrALAZINE] 25 mg PO DAILY Lisinopril 30 mg PO BID Furosemide [Lasix] 80 mg PO QAM Furosemide [Lasix] 40 mg PO QPM Home Medications: Aspirin [Ecotrin] 325 mg PO DAILY 05/09/18 [History] Atorvastatin [Lipitor] 10 mg PO HS 05/09/18 [History] Calcium Carbonate [Calcium] 600 mg PO DAILY 05/09/18 [History] Famotidine [Acid Controller] 20 mg PO BID 05/09/18 [History] Melatonin [Melatin] 3 mg PO HS 05/09/18 [History] Metoprolol [Lopressor] 12.5 mg PO BID 05/09/18 [History] Sertraline [Zoloft] 50 mg PO HS 05/09/18 [History] Tamsulosin HCl [Flomax] 0.4 mg PO HS 05/09/18 [History] Dorzolamide [Trusopt] 1 drop BOTH EYES BID 05/10/18 [History] Ferrous Gluconate [Iron] 240 mg PO DAILY 05/10/18 [History] Insulin ASPART [NovoLOG] 0 unit SQ ACHS MDD PER SLIDING SCALE 05/10/18 [History] Cyanocobalamin (Vitamin B-12) [B-12] 1,000 mcg PO DAILY 06/08/18 [History] Diphenoxylate/Atropine [Lomotil 2.5 mg/0.025 mg] 1 tab PO Q6H PRN 06/08/18 [History] Dorzolamide HCl/Pf [Dorzolamide 2% Eye Drop] 1 drop BOTH EYES BID 06/08/18 [History] Insulin Aspart Prot/Insuln Asp [Novolog Mix 70-30 Vial] 40 unit SQ BID #0 06/10/18 [Rx] Lactulose 10 gm PO BID #60 udc 06/10/18 [Rx] Allergies/Adverse Reactions: Allergy/AdvReac Type Severity Reaction Status Date / Time Penicillins Allergy Swelling Verified 06/08/18 14:10 of Lip/Tongue/Throat Date of admission: 06/07/18 20:20 Primary care physician: PCP NONE Consults: 06/07/18 22:39 Consult to Nephrology [CONS] Routine Consulting Provider: Kidney Erica/MARCK/ANTWON/[place] Reason for Consult: 83 year old man with CKD and liver cirrhosis, diuretics discontinued during last admission due to acute injury. presents with worsening fluid accumulation and had a paracentesis at OSH but noticed to have worsening kidney failure. Call Completed: No 06/09/18 05:50 Consult to Interventional Radiology [CONS] Routine Consulting Provider: Radiology Interventional Cols Reason for Consult: Please eval for Temporary HD catheter placement Call Completed: No 06/09/18 06:00 Consult to Dialysis [CONS] ONCE 06/09/18 12:28 Consult to Personnel Director [CONS] Routine Reason for SW Consult: financial concerns 06/10/18 07:30 Consult to Dialysis [CONS] ONCE Discharging clinician: Elkin Alva Anticipated date of discharge: 06/10/18 - Constitutional Vitals: Temp Pulse Resp BP Pulse Ox 97.1 F L 80 16 135/56 99 06/10/18 12:57 06/10/18 12:57 06/10/18 12:57 06/10/18 15:40 06/10/18 12:57 General appearance: Present: A&O X 3, no acute distress, answers questions appropriately Exam: xx - Patient Status Disposition: Home, Self-Care Condition: Fair Functional capacity at discharge: independent ambulation Overall status at discharge: patient is progressing back to baseline - Discharge Instructions Follow Up With: Prema Ledesma CNP [Advanced Practice Nurse] - (Call office Tuesday to schedule follow up for next week) Vivi Duque MD [Partnered Physician] - (Please ensure you follow up with Dr. Biswas's office next week. If for some reason you do not hear from them by Tuesday evening please call first thing on Tuesday Morning and tell them you need a hospital follow up this week per Dr. Kelly orders. And if they have any questions they can reach out to Dr. Biswas or to the nurses station. Thank you!) Additional Instructions: Dr. Biswas's Office to call the patient on Tuesday or Tuesday - appts needed for f-up visit and hemodialysis session... You must have your labs drawn on Tuesday and sent to Dr Biswas's office - Diet and Activity Activity: increase activity as tolerated Diet: diabetic diet
== END 2018-06-10 19:15 | disposition home or self-care (01) ==
LOC: 2ANU → SUATTDRO 20:20
PROVIDERS: ADMIT Internal Medicine; ATTEND Internal Medicine

== ENCOUNTER 2019-12-29 06:12 | Inpatient (IN) ==
[2019-12-29] MEDS ORDERED: Naloxone 0.4 MG/ML INJ IVP PRN (11:02)
[2019-12-29] MEDS ORDERED: Acetaminophen 325 MG TABLET PO PRN (11:02)
[2019-12-29] MEDS ORDERED: Amiodarone 150 MG in D5% in Water 100 ML IVPB ONE (11:06)
[2019-12-29 11:54] LABS: Adenovirus Not Detected (Not Detect); Bordetella Pertussis Not Detected (Not Detect); Chlamydophila pneumoniae Not Detected (Not Detect); Coronavirus 229E Not Detected (Not Detect); Coronavirus HKU1 Not Detected (Not Detect); Coronavirus NL63 Not Detected (Not Detect); Coronavirus OC43 Not Detected (Not Detect); Human Metapneumovirus Not Detected (Not Detect); Human Rhinovirus/Enterovirus Not Detected (Not Detect); Influenza A Subtype 2009 H1 Not Detected (Not Detect); Influenza B Not Detected (Not Detect); Mycoplasma pneumoniae Not Detected (Not Detect); Parainfluenza Virus 1 Not Detected (Not Detect); Parainfluenza Virus 2 Not Detected (Not Detect); Parainfluenza Virus 3 Not Detected (Not Detect); Parainfluenza Virus 4 Not Detected (Not Detect); Respiratory Syncytial Virus Not Detected (Not Detect); SARS-CoV-2 Not Detected (Not Detect)
[2019-12-29 12:09] LABS: INR 1.5; Prothrombin Time 16.7 Seconds (9.4-12.1)
[2019-12-29 12:12] LABS: Activated Partial Thrombo Time 28.9 Seconds (26.0-36.0)
[2019-12-29 12:15] LABS: Hematocrit 30.1 % (37.5-50.1); Hemoglobin 9.3 g/dL (12.9-16.9); Mean Corpuscular HGB Conc 30.9 g/dL (31.6-35.5); Mean Corpuscular Hemoglobin 29.5 pg (28.0-33.3); Mean Corpuscular Volume 95.6 fL (83.0-100.0); Mean Platelet Volume 10.1 fL (9.4-12.4); Platelet Count 172 K/mcL (140-400); Red Blood Count 3.15 M/mcL (4.19-5.50); Red Cell Distribution Width 15.3 % (11.5-14.5); White Blood Count 12.4 K/mcL (4.3-11.1)
[2019-12-29 12:32] LABS: Albumin 2.2 g/dL (3.5-5.7); Albumin/Globulin Ratio 0.9 (1.1-2.2); Bilirubin,Total 0.4 mg/dL (0.3-1.0); Calcium 7.4 mg/dL (8.6-10.3); Globulin 2.5 g/dL (2.4-3.5); Potassium 4.4 mEq/L (3.5-5.1); Total Protein 4.7 g/dL (6.4-8.9)
[2019-12-29] MEDS ORDERED: Diphenoxylate/Atropine 1 TAB TABLET PO PRN (12:51)
[2019-12-29] MEDS: Amiodarone Premix 360 MG/200 ML BAG IVC SCH (12:55)
[2019-12-29 13:20] LABS: Troponin I 2.46 ng/mL (< 0.04)
[2019-12-29] MEDS: Albumin Human 5% 12.5 GM/250 ML IV.SOLN IVC SCH ×2 (13:39→17:12)
[2019-12-29] MEDS ORDERED: *HR* Heparin 5,000 UNIT/ML VIAL IVP PRN ×2 (13:52)
[2019-12-29] MEDS ORDERED: *HR* Heparin 5,000 UNIT/ML VIAL IVP ONE (13:52)
[2019-12-29] MEDS ORDERED: Heparin 25,000UNIT/250ML 1/2NS 25,000 UNIT/250 ML IV.SOLN IVC SCH (14:00)
[2019-12-29 14:25] LABS: Heparin anti-factor XA UFH < 0.04 IU/mL (0.30-0.70); INR 1.5; Prothrombin Time 16.9 Seconds (9.4-12.1)
[2019-12-29] MEDS ORDERED: Perflutren Lipid Microsphere 1.3 ML in 0.9 % Sodium Chloride 8.7 ML IVP PRN (14:35)
[2019-12-29] MEDS: Cefepime HCl 1,000 MG in Water for inj. (sterile) 10 ML IVP SCH (17:00)
[2019-12-29] MEDS: Norepinephrine 4 MG/254 ML IV.SOLN IVC SCH (17:12)
[2019-12-29 17:30] LABS: Calcium 7.5 mg/dL (8.6-10.3); Potassium 4.5 mEq/L (3.5-5.1)
[2019-12-29 17:38] LABS: Troponin I 2.56 ng/mL (< 0.04)
[2019-12-29] MEDS ORDERED: *HR* Heparin 5,000 UNIT/ML VIAL SQ SCH (18:00)
[2019-12-29] MEDS ORDERED: Famotidine 20 MG/2 ML VIAL IVP SCH (18:00)
[2019-12-29] MEDS: Melatonin 3 MG TABLET PO SCH (19:58)
[2019-12-29] MEDS: Lactulose Oral Soln 20 GM/30 ML UDC PO SCH (19:58)
[2019-12-29] MEDS: Dorzolamide OPTH 10 ML BOTTLE BOTH EYES SCH (19:59)
[2019-12-29] MEDS ORDERED: DORZOLAMIDE HCL BOTH EYES SCH (21:00)
[2019-12-29] MEDS ORDERED: Famotidine 20 MG TABLET PO SCH (21:00)
[2019-12-29] MEDS ORDERED: [UNRECOGNIZED DRUG - OTHER] BOTH EYES SCH (21:00)
[2019-12-30] MEDS: Amiodarone Premix 360 MG/200 ML BAG IVC SCH ×2 (00:54→13:43)
[2019-12-30 05:19] LABS: Hematocrit 30.4 % (37.5-50.1); Hemoglobin 9.5 g/dL (12.9-16.9); Mean Corpuscular HGB Conc 31.3 g/dL (31.6-35.5); Mean Corpuscular Hemoglobin 29.9 pg (28.0-33.3); Mean Corpuscular Volume 95.6 fL (83.0-100.0); Mean Platelet Volume 9.6 fL (9.4-12.4); Platelet Count 183 K/mcL (140-400); Red Blood Count 3.18 M/mcL (4.19-5.50); Red Cell Distribution Width 15.5 % (11.5-14.5); White Blood Count 10.8 K/mcL (4.3-11.1)
[2019-12-30 05:38] LABS: Potassium 4.3 mEq/L (3.5-5.1)
[2019-12-30] MEDS: Norepinephrine 4 MG/254 ML IV.SOLN IVC SCH (06:30)
[2019-12-30 07:07] LABS: Magnesium 1.6 mg/dL (1.6-2.6); Phosphorous 3.9 mg/dL (2.7-4.5)
[2019-12-30 08:32] LABS: Troponin I 2.05 ng/mL (< 0.04)
[2019-12-30] MEDS: Lactulose Oral Soln 20 GM/30 ML UDC PO SCH ×2 (08:50→21:00)
[2019-12-30] MEDS: Aspirin Enteric Coated 325 MG Tablet PO SCH (08:50)
[2019-12-30] MEDS: Dorzolamide OPTH 10 ML BOTTLE BOTH EYES SCH ×2 (08:51→21:00)
[2019-12-30] MEDS: Cefepime HCl 1,000 MG in Water for inj. (sterile) 10 ML IVP SCH (08:51)
[2019-12-30] MEDS: Famotidine 20 MG/2 ML VIAL IVP SCH (08:51)
[2019-12-30] MEDS: Cyanocobalamin (B-12) 1,000 MCG TABLET PO SCH (08:51)
[2019-12-30] MEDS: Argatroban 250 MG in 0.9 % Sodium Chloride 250 ML IVC SCH (15:27)
[2019-12-30] MEDS: Albumin Human 5% 12.5 GM/250 ML IV.SOLN IVC SCH ×2 (15:27→18:10)
[2019-12-30 17:56] LABS: Albumin 2.4 g/dL (3.5-5.7); Albumin/Globulin Ratio 1.1 (1.1-2.2); Bilirubin,Direct 0.1 mg/dL (0.0-0.2); Bilirubin,Indirect 0.3 mg/dL (0.0-1.0); Bilirubin,Total 0.4 mg/dL (0.3-1.0); Globulin 2.2 g/dL (2.4-3.5); Total Protein 4.6 g/dL (6.4-8.9)
[2019-12-30] MEDS: Melatonin 3 MG TABLET PO SCH (21:00)
[2019-12-31] MEDS: Amiodarone Premix 360 MG/200 ML BAG IVC SCH ×2 (02:10→15:01)
[2019-12-31] MEDS: Norepinephrine 4 MG/254 ML IV.SOLN IVC SCH (03:21)
[2019-12-31 03:57] LABS: Basophils % 0.2 %; Eosinophils # 0.2 K/mcL (0.0-0.6); Eosinophils % 2.7 %; Hematocrit 28.1 % (37.5-50.1); Hemoglobin 8.7 g/dL (12.9-16.9); Immature Granulocytes % 0.6 % (0-4); Lymphocytes # 0.8 K/mcL (0.6-4.6); Lymphocytes % 9.6 %; Mean Corpuscular Hemoglobin 29.4 pg (28.0-33.3); Mean Corpuscular Volume 94.9 fL (83.0-100.0); Mean Platelet Volume 9.4 fL (9.4-12.4); Monocytes # 0.8 K/mcL (0.0-1.3); Monocytes % 8.9 %; Neutrophils # 6.6 K/mcL (1.6-8.9); Platelet Count 162 K/mcL (140-400); Red Blood Count 2.96 M/mcL (4.19-5.50); Red Cell Distribution Width 15.7 % (11.5-14.5); White Blood Count 8.4 K/mcL (4.3-11.1)
[2019-12-31 04:18] LABS: Calcium 7.7 mg/dL (8.6-10.3); Magnesium 1.9 mg/dL (1.6-2.6); Potassium 4.3 mEq/L (3.5-5.1)
[2019-12-31] MEDS ORDERED: Albumin 25% 25gram/100mL 25 GM/100 ML IV.SOLN IVPB PRN (07:30)
[2019-12-31] MEDS ORDERED: 0.9 % Sodium Chloride 1,000 ML PRIME SCH (07:30)
[2019-12-31] MEDS ORDERED: 0.9 % Sodium Chloride 250 ML IVC PRN (07:30)
[2019-12-31] MEDS: Cyanocobalamin (B-12) 1,000 MCG TABLET PO SCH (07:34)
[2019-12-31] MEDS: Aspirin Enteric Coated 325 MG Tablet PO SCH (07:34)
[2019-12-31] MEDS: Famotidine 20 MG/2 ML VIAL IVP SCH (07:35)
[2019-12-31] MEDS: Cefepime HCl 1,000 MG in Water for inj. (sterile) 10 ML IVP SCH (07:35)
[2019-12-31] MEDS: Lactulose Oral Soln 20 GM/30 ML UDC PO SCH ×2 (07:35→20:17)
[2019-12-31] MEDS: Dorzolamide OPTH 10 ML BOTTLE BOTH EYES SCH ×2 (07:36→20:19)
[2019-12-31 09:47] LABS: Hepatitis B Surface Antibody < 3.10 mIU/mL
[2019-12-31 09:58] LABS: Hepatitis B Surface Antigen Nonreactive (Nonreactive)
[2019-12-31] MEDS: Metoprolol XL (24 HR) Succ 25 MG TAB.ER.24H PO SCH (14:25)
[2019-12-31] MEDS ORDERED: *HR* Heparin 10,000 UNIT/10 ML VIAL IV PRN (15:04)
[2019-12-31] MEDS: Argatroban 250 MG in 0.9 % Sodium Chloride 250 ML IVC SCH (19:45)
[2019-12-31] MEDS: Melatonin 3 MG TABLET PO SCH (20:17)
[2020-01-01] MEDS: Amiodarone Premix 360 MG/200 ML BAG IVC SCH (02:08)
[2020-01-01 04:41] LABS: Basophils % 0.3 %; Eosinophils # 0.2 K/mcL (0.0-0.6); Eosinophils % 3.2 %; Hematocrit 27.3 % (37.5-50.1); Hemoglobin 8.7 g/dL (12.9-16.9); Immature Granulocytes % 0.5 % (0-4); Lymphocytes # 0.6 K/mcL (0.6-4.6); Lymphocytes % 9.7 %; Mean Corpuscular HGB Conc 31.9 g/dL (31.6-35.5); Mean Corpuscular Hemoglobin 30.3 pg (28.0-33.3); Mean Corpuscular Volume 95.1 fL (83.0-100.0); Mean Platelet Volume 9.5 fL (9.4-12.4); Monocytes # 0.6 K/mcL (0.0-1.3); Monocytes % 9.1 %; Neutrophils # 4.8 K/mcL (1.6-8.9); Platelet Count 160 K/mcL (140-400); Red Blood Count 2.87 M/mcL (4.19-5.50); Red Cell Distribution Width 15.9 % (11.5-14.5); Segmented Neutrophils % 77.2 %; White Blood Count 6.2 K/mcL (4.3-11.1)
[2020-01-01 05:00] LABS: Calcium 7.7 mg/dL (8.6-10.3); Potassium 3.8 mEq/L (3.5-5.1)
[2020-01-01] MEDS: Lactulose Oral Soln 20 GM/30 ML UDC PO SCH ×2 (08:06→20:06)
[2020-01-01] MEDS: Aspirin Enteric Coated 325 MG Tablet PO SCH (08:06)
[2020-01-01] MEDS: Cefepime HCl 1,000 MG in Water for inj. (sterile) 10 ML IVP SCH (08:07)
[2020-01-01] MEDS: Famotidine 20 MG/2 ML VIAL IVP SCH (08:07)
[2020-01-01] MEDS: Metoprolol XL (24 HR) Succ 25 MG TAB.ER.24H PO SCH (08:07)
[2020-01-01] MEDS: Cyanocobalamin (B-12) 1,000 MCG TABLET PO SCH (08:07)
[2020-01-01] MEDS: Dorzolamide OPTH 10 ML BOTTLE BOTH EYES SCH ×2 (08:08→20:10)
[2020-01-01] MEDS ORDERED: 0.9 % Sodium Chloride 250 ML IVC PRN ×2 (10:23→12:17)
[2020-01-01] MEDS ORDERED: *HR* Heparin 10,000 UNIT/10 ML VIAL IV PRN ×3 (11:42→14:06)
[2020-01-01] MEDS ORDERED: Argatroban 250 MG in 0.9 % Sodium Chloride 250 ML IVC SCH (12:17)
[2020-01-01] MEDS ORDERED: Amiodarone Premix 360 MG/200 ML BAG IVC SCH (12:17)
[2020-01-01] MEDS ORDERED: Naloxone 0.4 MG/ML INJ IVP PRN (12:17)
[2020-01-01] MEDS: Apixaban 2.5 MG TABLET PO SCH (20:05)
[2020-01-01] MEDS: Melatonin 3 MG TABLET PO SCH (20:05)
[2020-01-01] MEDS: *HR* Amiodarone 200 MG TABLET PO SCH (20:05)
[2020-01-01] MEDS: Acetaminophen 325 MG TABLET PO PRN (20:06)
[2020-01-02 04:38] LABS: Basophils % 0.7 %; Eosinophils # 0.2 K/mcL (0.0-0.6); Eosinophils % 2.5 %; Hematocrit 28.9 % (37.5-50.1); Hemoglobin 8.9 g/dL (12.9-16.9); Immature Granulocytes % 0.8 % (0-4); Lymphocytes # 0.8 K/mcL (0.6-4.6); Lymphocytes % 12.5 %; Mean Corpuscular HGB Conc 30.8 g/dL (31.6-35.5); Mean Corpuscular Hemoglobin 29.5 pg (28.0-33.3); Mean Corpuscular Volume 95.7 fL (83.0-100.0); Mean Platelet Volume 9.4 fL (9.4-12.4); Monocytes # 0.6 K/mcL (0.0-1.3); Monocytes % 10.5 %; Neutrophils # 4.4 K/mcL (1.6-8.9); Platelet Count 162 K/mcL (140-400); Red Blood Count 3.02 M/mcL (4.19-5.50); Red Cell Distribution Width 15.9 % (11.5-14.5); White Blood Count 6.1 K/mcL (4.3-11.1)
[2020-01-02 04:44] LABS: VBG Ionized Calcium 0.97 mmol/L (1.15-1.35)
[2020-01-02 04:56] LABS: Albumin 2.7 g/dL (3.5-5.7); Albumin/Globulin Ratio 1.1 (1.1-2.2); Bilirubin,Total 0.4 mg/dL (0.3-1.0); Calcium 8.2 mg/dL (8.6-10.3); Globulin 2.5 g/dL (2.4-3.5); Magnesium 1.8 mg/dL (1.6-2.6); Phosphorous 2.9 mg/dL (2.7-4.5); Potassium 4.4 mEq/L (3.5-5.1); Total Protein 5.2 g/dL (6.4-8.9)
[2020-01-02] MEDS ORDERED: 0.9 % Sodium Chloride 2,000 ML ONE (06:33)
[2020-01-02] MEDS ORDERED: 0.9 % Sodium Chloride 250 ML IVC PRN (07:17)
[2020-01-02] MEDS ORDERED: Cefepime HCl 1,000 MG in Water for inj. (sterile) 10 ML IVP SCH (09:00)
[2020-01-02] MEDS ORDERED: Famotidine 20 MG/2 ML VIAL IVP SCH (09:00)
[2020-01-02] MEDS ORDERED: Aspirin Enteric Coated 325 MG Tablet PO SCH (09:00)
[2020-01-02] MEDS: Lactulose Oral Soln 20 GM/30 ML UDC PO SCH ×2 (09:28→20:54)
[2020-01-02] MEDS: Apixaban 2.5 MG TABLET PO SCH ×2 (09:31→20:54)
[2020-01-02] MEDS: Metoprolol XL (24 HR) Succ 25 MG TAB.ER.24H PO SCH (09:31)
[2020-01-02] MEDS: *HR* Amiodarone 200 MG TABLET PO SCH ×2 (09:31→20:54)
[2020-01-02] MEDS: Dorzolamide OPTH 10 ML BOTTLE BOTH EYES SCH ×2 (09:37→20:54)
[2020-01-02] MEDS: Cyanocobalamin (B-12) 1,000 MCG TABLET PO SCH (09:37)
[2020-01-02] MEDS ORDERED: *HR* Heparin 10,000 UNIT/10 ML VIAL IV PRN (14:56)
[2020-01-02] MEDS ORDERED: *HR* LORazepam 2 MG/ML VIAL IVP ONE (18:33)
[2020-01-02] MEDS: Doxycycline 100 MG CAPSULE PO SCH (20:54)
[2020-01-02] MEDS: Melatonin 3 MG TABLET PO SCH (20:54)
[2020-01-02] MEDS: Norepinephrine 4 MG/254 ML IV.SOLN IVC SCH (22:03)
[2020-01-03 02:58] LABS: Basophils % 0.5 %; Eosinophils # 0.2 K/mcL (0.0-0.6); Eosinophils % 3.8 %; Hematocrit 27.5 % (37.5-50.1); Hemoglobin 8.4 g/dL (12.9-16.9); Immature Granulocytes % 0.5 % (0-4); Lymphocytes # 0.7 K/mcL (0.6-4.6); Lymphocytes % 12.1 %; Mean Corpuscular HGB Conc 30.5 g/dL (31.6-35.5); Mean Corpuscular Volume 94.8 fL (83.0-100.0); Mean Platelet Volume 9.7 fL (9.4-12.4); Monocytes # 0.7 K/mcL (0.0-1.3); Monocytes % 11.7 %; Platelet Count 143 K/mcL (140-400); Red Cell Distribution Width 16.1 % (11.5-14.5); Segmented Neutrophils % 71.4 %; White Blood Count 5.6 K/mcL (4.3-11.1)
[2020-01-03 02:59] LABS: INR 1.6; Prothrombin Time 18.7 Seconds (9.4-12.1)
[2020-01-03 03:06] LABS: Potassium 4.1 mEq/L (3.5-5.1)
[2020-01-03] MEDS: Lactulose Oral Soln 20 GM/30 ML UDC PO SCH ×2 (08:39→21:32)
[2020-01-03] MEDS: Apixaban 2.5 MG TABLET PO SCH ×2 (08:40→21:32)
[2020-01-03] MEDS: Metoprolol XL (24 HR) Succ 25 MG TAB.ER.24H PO SCH (08:40)
[2020-01-03] MEDS: Aspirin Enteric Coated 81 MG Tablet PO SCH (08:40)
[2020-01-03] MEDS: *HR* Amiodarone 200 MG TABLET PO SCH ×2 (08:40→21:33)
[2020-01-03] MEDS: Doxycycline 100 MG CAPSULE PO SCH ×2 (08:40→21:32)
[2020-01-03] MEDS: Dorzolamide OPTH 10 ML BOTTLE BOTH EYES SCH ×2 (08:41→21:33)
[2020-01-03] MEDS: Cyanocobalamin (B-12) 1,000 MCG TABLET PO SCH (08:41)
[2020-01-03] MEDS ORDERED: Famotidine 20 MG TABLET PO SCH (09:00)
[2020-01-03] MEDS: Acetaminophen 325 MG TABLET PO PRN ×2 (13:02→18:58)
[2020-01-03] MEDS: Melatonin 3 MG TABLET PO SCH (21:32)
[2020-01-04] MEDS ORDERED: 0.9 % Sodium Chloride 250 ML IVC PRN (06:25)
[2020-01-04] MEDS ORDERED: Albumin 25% 25gram/100mL 25 GM/100 ML IV.SOLN IVPB PRN (06:25)
[2020-01-04] MEDS ORDERED: 0.9 % Sodium Chloride 1,000 ML PRIME SCH (06:30)
[2020-01-04 06:47] LABS: Basophils % 0.4 %; Eosinophils # 0.3 K/mcL (0.0-0.6); Eosinophils % 3.7 %; Hematocrit 30.1 % (37.5-50.1); Hemoglobin 9.2 g/dL (12.9-16.9); Immature Granulocytes % 0.8 % (0-4); Lymphocytes # 0.7 K/mcL (0.6-4.6); Lymphocytes % 9.3 %; Mean Corpuscular HGB Conc 30.6 g/dL (31.6-35.5); Mean Corpuscular Hemoglobin 29.6 pg (28.0-33.3); Mean Corpuscular Volume 96.8 fL (83.0-100.0); Mean Platelet Volume 9.5 fL (9.4-12.4); Monocytes # 0.9 K/mcL (0.0-1.3); Monocytes % 11.9 %; Neutrophils # 5.8 K/mcL (1.6-8.9); Platelet Count 150 K/mcL (140-400); Red Blood Count 3.11 M/mcL (4.19-5.50); Red Cell Distribution Width 16.1 % (11.5-14.5); Segmented Neutrophils % 73.9 %; White Blood Count 7.9 K/mcL (4.3-11.1)
[2020-01-04 07:06] LABS: Calcium 8.1 mg/dL (8.6-10.3); Potassium 4.3 mEq/L (3.5-5.1)
[2020-01-04] MEDS: Lactulose Oral Soln 20 GM/30 ML UDC PO SCH (08:14)
[2020-01-04] MEDS: Doxycycline 100 MG CAPSULE PO SCH (08:15)
[2020-01-04] MEDS: Apixaban 2.5 MG TABLET PO SCH (08:15)
[2020-01-04] MEDS: Acetaminophen 325 MG TABLET PO PRN (08:15)
[2020-01-04] MEDS: Cyanocobalamin (B-12) 1,000 MCG TABLET PO SCH (08:16)
[2020-01-04] MEDS: Aspirin Enteric Coated 81 MG Tablet PO SCH (08:16)
[2020-01-04] MEDS: Metoprolol XL (24 HR) Succ 25 MG TAB.ER.24H PO SCH (08:16)
[2020-01-04] MEDS: *HR* Amiodarone 200 MG TABLET PO SCH (08:16)
[2020-01-04] MEDS: Dorzolamide OPTH 10 ML BOTTLE BOTH EYES SCH (08:17)
[2020-01-04] MEDS ORDERED: Famotidine 20 MG TABLET PO SCH (09:00)
[2020-01-04] MEDS ORDERED: *HR* Heparin 10,000 UNIT/10 ML VIAL IV PRN (10:18)
[2020-01-04 12:12] VITALS: BP 105/62
[2020-01-04] MEDS ORDERED: FLU Vac QV 20-21 (6Month+)/PF 0.5 ML SYRINGE IM ONE (12:39)
== END 2020-01-04 15:13 | DRG 871 ==
LOC: ICNU 09:40 → SUATTDRO 09:40 → 2ANU 01-01 15:15
PROVIDERS: ADMIT Family Medicine; ATTEND Student in an Organized Health Care Education/Training Program

== ENCOUNTER 2020-02-18 20:57 | Inpatient (IN) ==
[2020-02-19] MEDS ORDERED: Acetaminophen 325 MG TABLET PO PRN (05:37)
[2020-02-19] MEDS ORDERED: Ondansetron ODT 4 MG TAB.RAPDIS SL PRN (05:37)
[2020-02-19] MEDS ORDERED: Naloxone 0.4 MG/ML INJ IVP PRN (05:37)
[2020-02-19] MEDS ORDERED: D5% in Water 1,000 ML IVC PRN (05:43)
[2020-02-19] MEDS ORDERED: Dextrose Gel 15 GM/37.5 ML TUBE PO PRN ×2 (05:43)
[2020-02-19] MEDS ORDERED: *HR* Dextrose 50 % in Water (Vial) 50 ML VIAL IVP PRN (05:43)
[2020-02-19] MEDS: Pantoprazole 40 MG VIAL IVP SCH ×2 (06:12→16:29)
[2020-02-19 06:57] LABS: INR 1.4; Prothrombin Time 15.9 Seconds (9.4-12.1)
[2020-02-19 07:08] LABS: Basophils % 0.3 %; Eosinophils # 0.1 K/mcL (0.0-0.6); Eosinophils % 0.8 %; Hematocrit 22.3 % (37.5-50.1); Hemoglobin 6.9 g/dL (12.9-16.9); Immature Granulocytes % 0.5 % (0-4); Lymphocytes # 0.4 K/mcL (0.6-4.6); Lymphocytes % 6.2 %; Mean Corpuscular HGB Conc 30.9 g/dL (31.6-35.5); Mean Corpuscular Hemoglobin 30.1 pg (28.0-33.3); Mean Corpuscular Volume 97.4 fL (83.0-100.0); Mean Platelet Volume 10.3 fL (9.4-12.4); Monocytes # 0.6 K/mcL (0.0-1.3); Monocytes % 9.7 %; Platelet Count 159 K/mcL (140-400); Red Blood Count 2.29 M/mcL (4.19-5.50); Red Cell Distribution Width 16.4 % (11.5-14.5); Segmented Neutrophils % 82.5 %
[2020-02-19 07:22] LABS: Albumin 3.1 g/dL (3.5-5.7); Albumin/Globulin Ratio 1.6 (1.1-2.2); Bilirubin,Total 0.4 mg/dL (0.3-1.0); Calcium 8.2 mg/dL (8.6-10.3); Globulin 1.9 g/dL (2.4-3.5); Magnesium 1.7 mg/dL (1.6-2.6); Phosphorous 2.1 mg/dL (2.7-4.5); Potassium 5.2 mEq/L (3.5-5.1)
[2020-02-19] MEDS: Insulin LISPRO 300 UNITS/3 ML VIAL SQ SCH ×4 (07:25→20:33)
[2020-02-19] MEDS ORDERED: 0.9 % Sodium Chloride 250 ML ONE ×2 (09:23→16:42)
[2020-02-19] MEDS: *HR* Amiodarone 200 MG TABLET PO SCH ×2 (10:48→21:56)
[2020-02-19 11:24] LABS: Adenovirus Not Detected (Not Detect); Bordetella Pertussis Not Detected (Not Detect); Chlamydophila pneumoniae Not Detected (Not Detect); Coronavirus 229E Not Detected (Not Detect); Coronavirus HKU1 Not Detected (Not Detect); Coronavirus NL63 Not Detected (Not Detect); Coronavirus OC43 Not Detected (Not Detect); Human Metapneumovirus Not Detected (Not Detect); Human Rhinovirus/Enterovirus Not Detected (Not Detect); Influenza A Subtype 2009 H1 Not Detected (Not Detect); Influenza B Not Detected (Not Detect); Mycoplasma pneumoniae Not Detected (Not Detect); Parainfluenza Virus 1 Not Detected (Not Detect); Parainfluenza Virus 2 Not Detected (Not Detect); Parainfluenza Virus 3 Not Detected (Not Detect); Parainfluenza Virus 4 Not Detected (Not Detect); Respiratory Syncytial Virus Not Detected (Not Detect); SARS-CoV-2 Not Detected (Not Detect)
[2020-02-19] MEDS ORDERED: *HR* Vasopressin 20 UNIT/ML VIAL ONE (13:57)
[2020-02-19] MEDS ORDERED: *HR* Propofol 200 MG/20 ML VIAL IVP ONE ×3 (14:05→15:55)
[2020-02-19] MEDS ORDERED: Lidocaine -MPF 4% 5 ML AMPUL ONE (14:06)
[2020-02-19] MEDS ORDERED: *HR* Succinylcholine 200 MG/10 ML VIAL IVP ONE (14:10)
[2020-02-19] MEDS ORDERED: *HR* PHENYLEPHRINE 1,000 MCG/10 ML SYRINGE IVP ONE ×2 (15:14→16:07)
[2020-02-19] MEDS ORDERED: Ondansetron 4 MG/2 ML VIAL ONE (15:27)
[2020-02-19] MEDS ORDERED: Lidocaine -MPF 2% 2 ML VIAL ONE (15:46)
[2020-02-20 03:42] LABS: Basophils % 0.4 %; Eosinophils # 0.1 K/mcL (0.0-0.6); Hematocrit 26.8 % (37.5-50.1); Immature Granulocytes % 0.3 % (0-4); Lymphocytes # 0.5 K/mcL (0.6-4.6); Lymphocytes % 6.7 %; Mean Corpuscular HGB Conc 31.7 g/dL (31.6-35.5); Mean Corpuscular Hemoglobin 30.1 pg (28.0-33.3); Mean Platelet Volume 10.2 fL (9.4-12.4); Monocytes # 0.7 K/mcL (0.0-1.3); Neutrophils # 5.7 K/mcL (1.6-8.9); Platelet Count 146 K/mcL (140-400); Red Blood Count 2.82 M/mcL (4.19-5.50); Red Cell Distribution Width 16.5 % (11.5-14.5); Segmented Neutrophils % 81.6 %
[2020-02-20 03:43] LABS: Hemoglobin 8.5 g/dL (12.9-16.9)
[2020-02-20 03:45] LABS: INR 1.4; Prothrombin Time 15.7 Seconds (9.4-12.1)
[2020-02-20 04:01] LABS: Albumin 2.9 g/dL (3.5-5.7); Albumin/Globulin Ratio 1.5 (1.1-2.2); Bilirubin,Total 0.6 mg/dL (0.3-1.0); Calcium 8.4 mg/dL (8.6-10.3); Potassium 5.6 mEq/L (3.5-5.1); Total Protein 4.9 g/dL (6.4-8.9)
[2020-02-20] MEDS: Pantoprazole 40 MG VIAL IVP SCH ×2 (05:41→17:51)
[2020-02-20] MEDS: Insulin LISPRO 300 UNITS/3 ML VIAL SQ SCH ×4 (07:30→20:53)
[2020-02-20] MEDS ORDERED: 0.9 % Sodium Chloride 250 ML IVC PRN (07:43)
[2020-02-20] MEDS ORDERED: *HR* Heparin 10,000 UNIT/10 ML VIAL IV PRN (07:43)
[2020-02-20] MEDS ORDERED: 0.9 % Sodium Chloride 1,000 ML PRIME SCH (07:45)
[2020-02-20] MEDS ORDERED: Albumin 25% 25gram/100mL 25 GM/100 ML IV.SOLN IVPB SCH (08:00)
[2020-02-20] MEDS: *HR* Amiodarone 200 MG TABLET PO SCH (09:00)
[2020-02-20 10:58] LABS: Hepatitis B Surface Antibody < 3.10 mIU/mL
[2020-02-20 11:09] LABS: Hepatitis B Surface Antigen Nonreactive (Nonreactive)
[2020-02-20] MEDS: Fluconazole 100 MG TABLET PO SCH (13:26)
[2020-02-20 14:45] LABS: Estimated Average Glucose 114 mg/dl
[2020-02-21 04:36] LABS: Basophils % 0.4 %; Eosinophils # 0.2 K/mcL (0.0-0.6); Hematocrit 28.6 % (37.5-50.1); Hemoglobin 8.8 g/dL (12.9-16.9); Immature Granulocytes % 0.3 % (0-4); Lymphocytes # 0.7 K/mcL (0.6-4.6); Lymphocytes % 8.4 %; Mean Corpuscular HGB Conc 30.8 g/dL (31.6-35.5); Mean Corpuscular Hemoglobin 29.6 pg (28.0-33.3); Mean Corpuscular Volume 96.3 fL (83.0-100.0); Mean Platelet Volume 10.1 fL (9.4-12.4); Monocytes # 0.9 K/mcL (0.0-1.3); Monocytes % 10.6 %; Neutrophils # 6.3 K/mcL (1.6-8.9); Platelet Count 164 K/mcL (140-400); Red Blood Count 2.97 M/mcL (4.19-5.50); Red Cell Distribution Width 16.4 % (11.5-14.5); Segmented Neutrophils % 78.3 %
[2020-02-21 04:55] LABS: Potassium 4.6 mEq/L (3.5-5.1)
[2020-02-21] MEDS: Pantoprazole 40 MG VIAL IVP SCH (06:07)
[2020-02-21] MEDS ORDERED: Iron Sucrose Complex 400 MG in 0.9 % Sodium Chloride 250 ML IVPB ONE (07:31)
[2020-02-21] MEDS: Insulin LISPRO 300 UNITS/3 ML VIAL SQ SCH (07:33)
[2020-02-21] MEDS: Fluconazole 100 MG TABLET PO SCH (08:15)
[2020-02-21] MEDS ORDERED: *HR* Amiodarone 200 MG TABLET PO SCH (09:00)
[2020-02-21 11:11] VITALS: BP 104/64
== END 2020-02-21 11:21 | disposition home health service (06) | DRG 356 ==
LOC: 2ANU → SUATTDRO 02-19 05:25
PROVIDERS: ADMIT Internal Medicine; ATTEND Internal Medicine
PROC: ENDOEBX (2020-02-19 13:50)

== ENCOUNTER 2020-04-21 16:17 | Inpatient (IN) ==
[2020-04-21] MEDS ORDERED: Naloxone 0.4 MG/ML INJ IVP PRN (19:29)
[2020-04-21] MEDS ORDERED: 0.9 % Sodium Chloride 1,000 ML IVC SCH (19:30)
[2020-04-21] MEDS ORDERED: *HR* Dextrose 50 % in Water (Vial) 50 ML VIAL IVP PRN (19:34)
[2020-04-21] MEDS ORDERED: Dextrose Gel 15 GM/37.5 ML TUBE PO PRN ×2 (19:34)
[2020-04-21] MEDS ORDERED: D5% in Water 1,000 ML IVC PRN (19:34)
[2020-04-21 20:07] LABS: Basophils % 0.3 %; Eosinophils # 0.1 K/mcL (0.0-0.6); Eosinophils % 0.6 %; Hematocrit 29.2 % (37.5-50.1); Hemoglobin 8.9 g/dL (12.9-16.9); Immature Granulocytes % 0.4 % (0-4); Lymphocytes # 0.4 K/mcL (0.6-4.6); Lymphocytes % 5.1 %; Mean Corpuscular HGB Conc 30.5 g/dL (31.6-35.5); Mean Corpuscular Volume 101.7 fL (83.0-100.0); Mean Platelet Volume 9.6 fL (9.4-12.4); Monocytes # 0.7 K/mcL (0.0-1.3); Monocytes % 8.6 %; Neutrophils # 6.7 K/mcL (1.6-8.9); Platelet Count 116 K/mcL (140-400); Red Blood Count 2.87 M/mcL (4.19-5.50); Red Cell Distribution Width 23.4 % (11.5-14.5); White Blood Count 7.9 K/mcL (4.3-11.1)
[2020-04-21 20:16] LABS: INR 1.3; Prothrombin Time 14.8 Seconds (9.4-12.1)
[2020-04-21 20:18] LABS: Activated Partial Thrombo Time 28.6 Seconds (26.0-36.0)
[2020-04-21 20:26] LABS: Albumin 2.9 g/dL (3.5-5.7); Albumin/Globulin Ratio 1.1 (1.1-2.2); Bilirubin,Total 0.6 mg/dL (0.3-1.0); Calcium 8.3 mg/dL (8.6-10.3); Globulin 2.6 g/dL (2.4-3.5); Potassium 3.6 mEq/L (3.5-5.1); Total Protein 5.5 g/dL (6.4-8.9)
[2020-04-21 20:41] LABS: Anisocytosis 1+ (Not Present); Hypochromasia Present (Not Present); Platelet Estimate Slight Decrease (Normal)
[2020-04-21] MEDS ORDERED: Melatonin 3 MG TABLET PO PRN (21:47)
[2020-04-21] MEDS: Pantoprazole 40 MG VIAL IVP SCH (22:05)
[2020-04-21] MEDS: Octreotide 400 MCG in 0.9 % Sodium Chloride 100 ML IVC SCH (22:06)
[2020-04-22] MEDS: Insulin LISPRO 300 UNITS/3 ML VIAL SUBQ SCH ×5 (00:26→23:58)
[2020-04-22 01:38] LABS: Basophils % 0.2 %; Eosinophils # 0.1 K/mcL (0.0-0.6); Eosinophils % 0.6 %; Hemoglobin 8.3 g/dL (12.9-16.9); Immature Granulocytes % 0.5 % (0-4); Lymphocytes # 0.6 K/mcL (0.6-4.6); Lymphocytes % 6.7 %; Mean Corpuscular HGB Conc 29.6 g/dL (31.6-35.5); Mean Corpuscular Hemoglobin 30.3 pg (28.0-33.3); Mean Corpuscular Volume 102.2 fL (83.0-100.0); Mean Platelet Volume 9.9 fL (9.4-12.4); Monocytes # 0.8 K/mcL (0.0-1.3); Monocytes % 9.7 %; Platelet Count 114 K/mcL (140-400); Red Blood Count 2.74 M/mcL (4.19-5.50); Red Cell Distribution Width 23.7 % (11.5-14.5); Segmented Neutrophils % 82.3 %; White Blood Count 8.2 K/mcL (4.3-11.1)
[2020-04-22 01:42] LABS: Neutrophils # 6.8 K/mcL (1.6-8.9)
[2020-04-22 01:57] LABS: Albumin 2.7 g/dL (3.5-5.7); Albumin/Globulin Ratio 1.1 (1.1-2.2); Bilirubin,Total 0.5 mg/dL (0.3-1.0); Globulin 2.5 g/dL (2.4-3.5); Potassium 3.7 mEq/L (3.5-5.1); Total Protein 5.2 g/dL (6.4-8.9)
[2020-04-22 02:26] LABS: Anisocytosis 2+ (Not Present); Platelet Estimate Slight Decrease (Normal); Poikilocytosis 1+ (Not Present)
[2020-04-22] MEDS: cefTRIAXone 1,000 MG in Water for inj. (sterile) 10 ML IVP SCH (05:08)
[2020-04-22] MEDS: Pantoprazole 40 MG VIAL IVP SCH ×2 (05:08→16:57)
[2020-04-22] MEDS ORDERED: 0.9 % Sodium Chloride 250 ML IVC PRN (07:16)
[2020-04-22] MEDS ORDERED: Albumin 25% 25gram/100mL 25 GM/100 ML IV.SOLN IVPB ONE (07:20)
[2020-04-22] MEDS ORDERED: 0.9 % Sodium Chloride 1,000 ML PRIME SCH (07:30)
[2020-04-22 08:16] LABS: Hepatitis B Surface Antibody < 3.10 mIU/mL
[2020-04-22 08:27] LABS: Hepatitis B Surface Antigen Nonreactive (Nonreactive)
[2020-04-22] MEDS: Calcium Acetate 667 MG CAPSULE PO SCH ×4 (08:29→17:00)
[2020-04-22] MEDS: *HR* Amiodarone 200 MG TABLET PO SCH (08:32)
[2020-04-22] MEDS ORDERED: Famotidine 20 MG TABLET PO SCH (09:00)
[2020-04-22] MEDS ORDERED: *HR* Heparin 10,000 UNIT/10 ML VIAL IV PRN (11:02)
[2020-04-22] MEDS: Albumin 25% 25gram/100mL 25 GM/100 ML IV.SOLN IVPB SCH ×3 (15:43→20:48)
[2020-04-22 16:14] LABS: Estimated Average Glucose 117 mg/dl; Hemoglobin A1C 5.7 %
[2020-04-22] MEDS: Octreotide 400 MCG in 0.9 % Sodium Chloride 100 ML IVC SCH ×2 (19:07→21:50)
[2020-04-22] MEDS: Famotidine 20 MG TABLET PO SCH (20:48)
[2020-04-22 22:30] LABS: Adenovirus Not Detected (Not Detect); Bordetella Pertussis Not Detected (Not Detect); Chlamydophila pneumoniae Not Detected (Not Detect); Coronavirus 229E Not Detected (Not Detect); Coronavirus HKU1 Not Detected (Not Detect); Coronavirus NL63 Not Detected (Not Detect); Coronavirus OC43 Not Detected (Not Detect); Human Metapneumovirus Not Detected (Not Detect); Human Rhinovirus/Enterovirus Not Detected (Not Detect); Influenza A Subtype 2009 H1 Not Detected (Not Detect); Influenza B Not Detected (Not Detect); Mycoplasma pneumoniae Not Detected (Not Detect); Parainfluenza Virus 1 Not Detected (Not Detect); Parainfluenza Virus 2 Not Detected (Not Detect); Parainfluenza Virus 3 Not Detected (Not Detect); Parainfluenza Virus 4 Not Detected (Not Detect); Respiratory Syncytial Virus Not Detected (Not Detect); SARS-CoV-2 Not Detected (Not Detect)
[2020-04-23] MEDS: Pantoprazole 40 MG VIAL IVP SCH ×2 (05:23→16:29)
[2020-04-23] MEDS: cefTRIAXone 1,000 MG in Water for inj. (sterile) 10 ML IVP SCH (05:23)
[2020-04-23] MEDS: Insulin LISPRO 300 UNITS/3 ML VIAL SUBQ SCH ×3 (05:24→16:27)
[2020-04-23 06:20] LABS: Basophils % 0.2 %; Eosinophils # 0.1 K/mcL (0.0-0.6); Eosinophils % 0.6 %; Hematocrit 27.3 % (37.5-50.1); Hemoglobin 8.1 g/dL (12.9-16.9); Immature Granulocytes % 0.5 % (0-4); Lymphocytes # 0.6 K/mcL (0.6-4.6); Lymphocytes % 6.6 %; Mean Corpuscular HGB Conc 29.7 g/dL (31.6-35.5); Mean Corpuscular Hemoglobin 30.7 pg (28.0-33.3); Mean Corpuscular Volume 103.4 fL (83.0-100.0); Monocytes # 0.8 K/mcL (0.0-1.3); Monocytes % 9.4 %; Platelet Count 115 K/mcL (140-400); Red Blood Count 2.64 M/mcL (4.19-5.50); Red Cell Distribution Width 23.7 % (11.5-14.5); Segmented Neutrophils % 82.7 %; White Blood Count 8.5 K/mcL (4.3-11.1)
[2020-04-23 06:39] LABS: Albumin 3.2 g/dL (3.5-5.7); Albumin/Globulin Ratio 1.9 (1.1-2.2); Bilirubin,Total 0.6 mg/dL (0.3-1.0); Calcium 8.1 mg/dL (8.6-10.3); Globulin 1.7 g/dL (2.4-3.5); Potassium 3.6 mEq/L (3.5-5.1); Total Protein 4.9 g/dL (6.4-8.9)
[2020-04-23 06:43] LABS: Anisocytosis 3+ (Not Present); Macrocytosis Present (Not Present); Platelet Estimate Slight Decrease (Normal)
[2020-04-23] MEDS ORDERED: 0.9 % Sodium Chloride 250 ML IVC PRN (06:58)
[2020-04-23] MEDS: Calcium Acetate 667 MG CAPSULE PO SCH ×3 (08:01→16:28)
[2020-04-23] MEDS: *HR* Amiodarone 200 MG TABLET PO SCH (08:03)
[2020-04-23] MEDS: Famotidine 20 MG TABLET PO SCH (20:34)
[2020-04-24] MEDS: Octreotide 400 MCG in 0.9 % Sodium Chloride 100 ML IVC SCH ×2 (00:42→06:25)
[2020-04-24] MEDS: Insulin LISPRO 300 UNITS/3 ML VIAL SUBQ SCH ×4 (01:02→16:46)
[2020-04-24 01:26] LABS: Hematocrit 30.9 % (37.5-50.1); Hemoglobin 9.2 g/dL (12.9-16.9); Mean Corpuscular HGB Conc 29.8 g/dL (31.6-35.5); Mean Corpuscular Hemoglobin 30.9 pg (28.0-33.3); Mean Corpuscular Volume 103.7 fL (83.0-100.0); Mean Platelet Volume 9.9 fL (9.4-12.4); Platelet Count 117 K/mcL (140-400); Red Blood Count 2.98 M/mcL (4.19-5.50); Red Cell Distribution Width 23.2 % (11.5-14.5); White Blood Count 7.5 K/mcL (4.3-11.1)
[2020-04-24 01:45] LABS: Calcium 7.7 mg/dL (8.6-10.3); Magnesium 1.9 mg/dL (1.6-2.6); Potassium 3.8 mEq/L (3.5-5.1)
[2020-04-24] MEDS: Pantoprazole 40 MG VIAL IVP SCH ×2 (05:53→16:57)
[2020-04-24] MEDS: cefTRIAXone 1,000 MG in Water for inj. (sterile) 10 ML IVP SCH (05:54)
[2020-04-24] MEDS ORDERED: 0.9 % Sodium Chloride 250 ML IVC PRN (06:53)
[2020-04-24] MEDS: *HR* Amiodarone 200 MG TABLET PO SCH (07:16)
[2020-04-24] MEDS: Calcium Acetate 667 MG CAPSULE PO SCH ×3 (07:17→16:46)
[2020-04-24] MEDS ORDERED: Albumin 25% 25gram/100mL 25 GM/100 ML IV.SOLN IVPB PRN (10:38)
[2020-04-24] MEDS ORDERED: Albumin 25% 25gram/100mL 25 GM/100 ML IV.SOLN ONE (10:39)
[2020-04-24] MEDS ORDERED: Morphine Sulfate Oral CONC 10 MG/0.5 ML ORAL.SYG SL ONE (12:50)
[2020-04-24] MEDS ORDERED: Lidocaine -MPF 2% 2 ML VIAL ONE (14:40)
[2020-04-24] MEDS ORDERED: *HR* Propofol 200 MG/20 ML VIAL IVP ONE (14:40)
[2020-04-24] MEDS: 0.9 % Sodium Chloride 500 ML IVC SCH (14:57)
[2020-04-24] MEDS ORDERED: *HR* Etomidate 40 MG/20 ML VIAL IVP ONE (14:59)
[2020-04-24] MEDS: Famotidine 20 MG TABLET PO SCH (20:59)
[2020-04-25] MEDS: Insulin LISPRO 300 UNITS/3 ML VIAL SUBQ SCH ×5 (00:12→23:29)
[2020-04-25 04:43] LABS: Hematocrit 30.8 % (37.5-50.1); Mean Corpuscular HGB Conc 29.2 g/dL (31.6-35.5); Mean Corpuscular Hemoglobin 30.3 pg (28.0-33.3); Mean Corpuscular Volume 103.7 fL (83.0-100.0); Mean Platelet Volume 10.2 fL (9.4-12.4); Platelet Count 107 K/mcL (140-400); Red Blood Count 2.97 M/mcL (4.19-5.50); Red Cell Distribution Width 22.8 % (11.5-14.5)
[2020-04-25 05:04] LABS: Albumin 3.1 g/dL (3.5-5.7); Albumin/Globulin Ratio 1.6 (1.1-2.2); Bilirubin,Total 0.6 mg/dL (0.3-1.0); Calcium 7.9 mg/dL (8.6-10.3); Globulin 1.9 g/dL (2.4-3.5)
[2020-04-25] MEDS: cefTRIAXone 1,000 MG in Water for inj. (sterile) 10 ML IVP SCH (05:53)
[2020-04-25] MEDS: Pantoprazole 40 MG VIAL IVP SCH ×2 (05:54→17:49)
[2020-04-25] MEDS: 0.9 % Sodium Chloride 500 ML IVC SCH ×3 (07:23→22:56)
[2020-04-25] MEDS: Calcium Acetate 667 MG CAPSULE PO SCH ×3 (09:02→17:33)
[2020-04-25] MEDS: *HR* Amiodarone 200 MG TABLET PO SCH (12:26)
[2020-04-25] MEDS ORDERED: 0.9 % Sodium Chloride 250 ML IVC ONE (12:44)
[2020-04-25] MEDS ORDERED: Doxycycline 100 MG in 0.9 % Sodium Chloride Mini Bag 100 ML IVPB ONE (17:28)
[2020-04-25] MEDS: Norepinephrine 4 MG/254 ML IV.SOLN IVC SCH (17:36)
[2020-04-25] MEDS ORDERED: Vancomycin 1 EACH in 0.9 % Sodium Chloride 250 ML IVPB PRN (18:00)
[2020-04-25 18:07] LABS: Hematocrit 27.8 % (37.5-50.1); Hemoglobin 8.3 g/dL (12.9-16.9); Mean Corpuscular HGB Conc 29.9 g/dL (31.6-35.5); Mean Corpuscular Hemoglobin 30.9 pg (28.0-33.3); Mean Corpuscular Volume 103.3 fL (83.0-100.0); Mean Platelet Volume 10.2 fL (9.4-12.4); Platelet Count 103 K/mcL (140-400); Red Blood Count 2.69 M/mcL (4.19-5.50); Red Cell Distribution Width 22.4 % (11.5-14.5); White Blood Count 8.2 K/mcL (4.3-11.1)
[2020-04-25] MEDS ORDERED: Vancomycin 1,250 MG/262.5 ML IV.SOLN IVPB ONE (18:22)
[2020-04-25 18:29] LABS: Albumin 2.9 g/dL (3.5-5.7); Albumin/Globulin Ratio 1.5 (1.1-2.2); Bilirubin,Total 0.5 mg/dL (0.3-1.0); Calcium 7.8 mg/dL (8.6-10.3); Magnesium 1.8 mg/dL (1.6-2.6); Potassium 3.9 mEq/L (3.5-5.1); Total Protein 4.9 g/dL (6.4-8.9)
[2020-04-25 18:34] LABS: ABG Base Excess -4 mEq/L (-2 to 3); ABG HCO3 23 mEq/L (21-27); ABG Oxygen Saturation 97 % (95-98); ABG PCO2 46 mmHg (35-45); ABG PO2 96 mmHg (85-104); ABG TCO2 24 mEq/L (20-26)
[2020-04-25] MEDS: Famotidine 20 MG TABLET PO SCH (21:12)
[2020-04-25 23:13] LABS: Hematocrit 30.1 % (37.5-50.1); Hemoglobin 8.7 g/dL (12.9-16.9)
[2020-04-26] MEDS: Norepinephrine 4 MG/254 ML IV.SOLN IVC SCH ×5 (03:22→21:27)
[2020-04-26 04:16] LABS: Basophils % 0.1 %; Eosinophils % 0.4 %; Hematocrit 29.7 % (37.5-50.1); Hemoglobin 8.6 g/dL (12.9-16.9); Immature Granulocytes % 0.8 % (0-4); Lymphocytes # 0.3 K/mcL (0.6-4.6); Lymphocytes % 3.3 %; Mean Corpuscular Hemoglobin 30.6 pg (28.0-33.3); Mean Corpuscular Volume 105.7 fL (83.0-100.0); Mean Platelet Volume 10.1 fL (9.4-12.4); Monocytes # 0.7 K/mcL (0.0-1.3); Monocytes % 7.8 %; Neutrophils # 8.3 K/mcL (1.6-8.9); Platelet Count 135 K/mcL (140-400); Red Blood Count 2.81 M/mcL (4.19-5.50); Red Cell Distribution Width 22.3 % (11.5-14.5); Segmented Neutrophils % 87.6 %; White Blood Count 9.5 K/mcL (4.3-11.1)
[2020-04-26 04:24] LABS: ABG Base Excess -7 mEq/L (-2 to 3); ABG HCO3 19 mEq/L (21-27); ABG Oxygen Saturation 93 % (95-98); ABG PCO2 38 mmHg (35-45); ABG PH 7.31 pH Units (7.32-7.45); ABG PO2 75 mmHg (85-104); ABG TCO2 20 mEq/L (20-26)
[2020-04-26 04:36] LABS: Calcium 8.1 mg/dL (8.6-10.3)
[2020-04-26] MEDS: cefTRIAXone 1,000 MG in Water for inj. (sterile) 10 ML IVP SCH (05:18)
[2020-04-26] MEDS: Pantoprazole 40 MG VIAL IVP SCH ×2 (05:18→16:51)
[2020-04-26] MEDS: Insulin LISPRO 300 UNITS/3 ML VIAL SUBQ SCH ×4 (05:20→23:09)
[2020-04-26] MEDS: *HR* Amiodarone 200 MG TABLET PO SCH (07:26)
[2020-04-26] MEDS: Calcium Acetate 667 MG CAPSULE PO SCH ×3 (07:26→14:22)
[2020-04-26] MEDS ORDERED: Phenylephrine 10 MG in 0.9 % Sodium Chloride 250 ML IVC SCH (18:30)
[2020-04-26 18:54] LABS: VBG Ionized Calcium 1.06 mmol/L (1.15-1.35)
[2020-04-26 19:07] LABS: Albumin 3.1 g/dL (3.5-5.7); Albumin/Globulin Ratio 1.6 (1.1-2.2); Bilirubin,Total 0.5 mg/dL (0.3-1.0); Magnesium 1.9 mg/dL (1.6-2.6); Phosphorous 4.3 mg/dL (2.7-4.5); Potassium 3.9 mEq/L (3.5-5.1); Total Protein 5.1 g/dL (6.4-8.9)
[2020-04-26] MEDS: Ondansetron 4 MG/2 ML VIAL IVP PRN (19:58)
[2020-04-26] MEDS: Famotidine 20 MG TABLET PO SCH (20:08)
[2020-04-26] MEDS: Phenylephrine 50 MG in 0.9 % Sodium Chloride 250 ML IVC SCH (20:19)
[2020-04-26] MEDS: Calcium Gluconate 1gm/50mL 1 GM/50 ML BAG IVPB PRN (20:54)
[2020-04-26] MEDS: Meropenem 500 MG in Water for inj. (sterile) 10 ML IVP SCH (21:00)
[2020-04-26 21:37] LABS: Basophils % 0.2 %; Eosinophils # 0.1 K/mcL (0.0-0.6); Eosinophils % 0.6 %; Hematocrit 31.3 % (37.5-50.1); Hemoglobin 9.1 g/dL (12.9-16.9); Immature Granulocytes % 0.6 % (0-4); Lymphocytes # 0.4 K/mcL (0.6-4.6); Lymphocytes % 3.3 %; Mean Corpuscular HGB Conc 29.1 g/dL (31.6-35.5); Mean Corpuscular Hemoglobin 30.1 pg (28.0-33.3); Mean Corpuscular Volume 103.6 fL (83.0-100.0); Mean Platelet Volume 9.7 fL (9.4-12.4); Monocytes # 1.1 K/mcL (0.0-1.3); Monocytes % 9.7 %; Neutrophils # 9.2 K/mcL (1.6-8.9); Platelet Count 178 K/mcL (140-400); Red Blood Count 3.02 M/mcL (4.19-5.50); Red Cell Distribution Width 22.2 % (11.5-14.5); Segmented Neutrophils % 85.6 %; White Blood Count 10.8 K/mcL (4.3-11.1)
[2020-04-26 21:55] LABS: Calcium 8.2 mg/dL (8.6-10.3); Potassium 3.9 mEq/L (3.5-5.1)
[2020-04-27 01:59] LABS: Basophils % 0.2 %; Eosinophils % 0.4 %; Hematocrit 31.2 % (37.5-50.1); Hemoglobin 9.2 g/dL (12.9-16.9); Immature Granulocytes % 0.8 % (0-4); Lymphocytes # 0.3 K/mcL (0.6-4.6); Lymphocytes % 2.4 %; Mean Corpuscular HGB Conc 29.5 g/dL (31.6-35.5); Mean Corpuscular Hemoglobin 30.9 pg (28.0-33.3); Mean Corpuscular Volume 104.7 fL (83.0-100.0); Mean Platelet Volume 9.9 fL (9.4-12.4); Monocytes # 1.2 K/mcL (0.0-1.3); Monocytes % 11.5 %; Neutrophils # 8.9 K/mcL (1.6-8.9); Platelet Count 171 K/mcL (140-400); Red Blood Count 2.98 M/mcL (4.19-5.50); Red Cell Distribution Width 22.3 % (11.5-14.5); Segmented Neutrophils % 84.7 %; White Blood Count 10.5 K/mcL (4.3-11.1)
[2020-04-27] MEDS: Phenylephrine 50 MG in 0.9 % Sodium Chloride 250 ML IVC SCH ×5 (02:01→20:41)
[2020-04-27 04:18] LABS: Calcium 8.1 mg/dL (8.6-10.3); Potassium 3.9 mEq/L (3.5-5.1)
[2020-04-27 05:08] LABS: VBG Ionized Calcium 1.08 mmol/L (1.15-1.35)
[2020-04-27] MEDS: Insulin LISPRO 300 UNITS/3 ML VIAL SUBQ SCH ×3 (05:10→17:17)
[2020-04-27] MEDS: Pantoprazole 40 MG VIAL IVP SCH ×2 (05:14→17:16)
[2020-04-27] MEDS: Calcium Gluconate 1gm/50mL 1 GM/50 ML BAG IVPB PRN ×2 (05:15→14:39)
[2020-04-27] MEDS: Norepinephrine 4 MG/254 ML IV.SOLN IVC SCH ×5 (06:25→21:18)
[2020-04-27] MEDS ORDERED: Perflutren Lipid Microsphere 1.3 ML in 0.9 % Sodium Chloride 8.7 ML IVP PRN (07:37)
[2020-04-27] MEDS: Calcium Acetate 667 MG CAPSULE PO SCH ×3 (08:22→15:57)
[2020-04-27] MEDS ORDERED: Amiodarone Premix 360 MG/200 ML BAG IVC ONE (08:42)
[2020-04-27] MEDS ORDERED: Amiodarone Premix 150 MG/100 ML BAG IVPB ONE (08:42)
[2020-04-27 13:43] LABS: VBG Ionized Calcium 1.09 mmol/L (1.15-1.35)
[2020-04-27] MEDS: Amiodarone Premix 360 MG/200 ML BAG IVC SCH (14:39)
[2020-04-27] MEDS: Famotidine 20 MG TABLET PO SCH (19:40)
[2020-04-27 20:46] LABS: VBG Ionized Calcium 1.14 mmol/L (1.15-1.35)
[2020-04-27] MEDS: Meropenem 500 MG in Water for inj. (sterile) 10 ML IVP SCH (21:01)
[2020-04-27 22:42] LABS: Calcium 8.2 mg/dL (8.6-10.3); Potassium 3.9 mEq/L (3.5-5.1)
[2020-04-28] MEDS: Norepinephrine 8 MG in 0.9 % Sodium Chloride 250 ML IVC SCH ×3 (00:01→10:45)
[2020-04-28] MEDS: Insulin LISPRO 300 UNITS/3 ML VIAL SUBQ SCH ×3 (00:15→12:22)
[2020-04-28] MEDS: Amiodarone Premix 360 MG/200 ML BAG IVC SCH (01:35)
[2020-04-28] MEDS: Phenylephrine 50 MG in 0.9 % Sodium Chloride 250 ML IVC SCH ×2 (01:36→09:25)
[2020-04-28] MEDS: Pantoprazole 40 MG VIAL IVP SCH (05:12)
[2020-04-28 05:22] LABS: Basophils % 0.4 %; Eosinophils # 0.1 K/mcL (0.0-0.6); Eosinophils % 0.8 %; Hematocrit 31.8 % (37.5-50.1); Hemoglobin 9.4 g/dL (12.9-16.9); Immature Granulocytes % 1.3 % (0-4); Lymphocytes # 0.4 K/mcL (0.6-4.6); Lymphocytes % 3.9 %; Mean Corpuscular HGB Conc 29.6 g/dL (31.6-35.5); Mean Corpuscular Hemoglobin 30.4 pg (28.0-33.3); Mean Corpuscular Volume 102.9 fL (83.0-100.0); Mean Platelet Volume 9.7 fL (9.4-12.4); Monocytes # 1.2 K/mcL (0.0-1.3); Neutrophils # 9.2 K/mcL (1.6-8.9); Platelet Count 177 K/mcL (140-400); Red Blood Count 3.09 M/mcL (4.19-5.50); Red Cell Distribution Width 21.7 % (11.5-14.5); Segmented Neutrophils % 82.6 %; White Blood Count 11.1 K/mcL (4.3-11.1)
[2020-04-28] MEDS: Calcium Acetate 667 MG CAPSULE PO SCH ×2 (09:07→12:22)
[2020-04-28] MEDS: Ondansetron 4 MG/2 ML VIAL IVP PRN (09:49)
[2020-04-28] MEDS ORDERED: Albumin 25% 25gram/100mL 25 GM/100 ML IV.SOLN IVPB ONE (11:10)
[2020-04-28 11:36] LABS: Calcium 8.1 mg/dL (8.6-10.3)
[2020-04-28] MEDS ORDERED: Hydrocortisone Sodium Succ 100 MG/2 ML VIAL IVP ONE (11:45)
[2020-04-28] MEDS ORDERED: Vancomycin 500 MG in 0.9 % Sodium Chloride Mini Bag 100 ML IVPB ONE (12:00)
[2020-04-28 13:05] VITALS: BP 62/45
== END 2020-04-28 14:30 | disposition expired | DRG 871 ==
LOC: 2ANU → SUATTDRO 19:29 → ICNU 04-25 16:44
PROVIDERS: ADMIT Internal Medicine; ATTEND Pediatrics